=== PATIENT | male | born 1955 | race Caucasian/White ===

== ENCOUNTER 2017-01-04 07:30 | Inpatient (IN) | payer MEDICARE, MEDICAID ==
[2017-01-11] MEDS ORDERED: Lactated Ringers 1,000 ML IV SCH (06:15)
[2017-01-11] MEDS ORDERED: ceFAZolin 2 GM in Premix Bag 1 BAG IV ONE (06:15)
[2017-01-11] MEDS ORDERED: Thrombin (Bovine) 5,000 Unit Kit ONE ×3 (06:50→07:54)
[2017-01-11] MEDS ORDERED: ceFAZolin 2 GM in Sodium Chloride 0.9% 50 ML IV ONE (07:00)
[2017-01-11] MEDS ORDERED: Propofol 200 MG/20 ML SDV ONE ×4 (07:20→09:29)
[2017-01-11] MEDS ORDERED: fentaNYL 250 MCG/5 ML SDV ONE ×2 (07:20→10:46)
[2017-01-11] MEDS ORDERED: Neostigmine Methylsulfate 1 MG/ML 5 ML Syringe ONE (07:20)
[2017-01-11] MEDS ORDERED: Dexamethasone 4 MG/ML SDV ONE (07:20)
[2017-01-11] MEDS ORDERED: Ondansetron 4 MG/2 ML SDV ONE (07:20)
[2017-01-11] MEDS ORDERED: Rocuronium 50 MG/5 ML Vial ONE ×2 (07:20→08:01)
[2017-01-11] MEDS ORDERED: Succinylcholine/Normal Saline 200 MG/10 ML Syringe ONE (07:20)
[2017-01-11] MEDS ORDERED: Ketamine 500 MG/5 ML MDV IV SCH (07:30)
[2017-01-11] MEDS ORDERED: Povidone-Iodine 10% Soln 118.25 ML Bottle ONE (09:02)
[2017-01-11] MEDS ORDERED: Lactated Ringers 1,000 ML ONE ×2 (09:06)
[2017-01-11] MEDS ORDERED: Linezolid 200 MG/100 ML Bag IRR ONE (11:00)
[2017-01-11] MEDS ORDERED: HYDROmorphone/Normal Saline 15 MG/30 ML PCA IV PRN (12:02)
[2017-01-11] MEDS ORDERED: Naloxone 0.4 MG/ML SDV IVPUSH PRN (12:02)
[2017-01-11] MEDS ORDERED: Acetaminophen/oxyCODONE 325-5 MG Tab PO PRN (14:11)
[2017-01-11] MEDS ORDERED: Ondansetron 4 MG/2 ML SDV IVPUSH PRN (14:12)
[2017-01-11] MEDS ORDERED: Nitroglycerin 0.4 MG Tab.SL SL PRN (14:15)
[2017-01-11] MEDS: Dextrose 5%-Lactated Ringers 1,000 ML IV SCH ×2 (14:45→20:41)
[2017-01-11] MEDS: ceFAZolin 2 GM in Sodium Chloride 0.9% 50 ML IV SCH ×2 (15:24→22:38)
[2017-01-11] MEDS: ClonazePAM 1 MG Tab PO SCH ×3 (15:29→20:42)
[2017-01-11] MEDS: Lisinopril 20 MG Tab PO SCH (15:31)
[2017-01-11] MEDS: Divalproex Sodium 250 MG Tab.ER PO SCH ×2 (15:31→20:56)
--- NOTE | 2017-01-11 16:41 | OR ---
DATE OF PROCEDURE: 01/11/2017 PREOPERATIVE DIAGNOSES: 1. Lumbar stenosis, L5-S1. 2. Lumbar spondylolisthesis, L5-S1. 3. Lumbar radiculopathy, L5-S1. POSTOPERATIVE DIAGNOSES: 1. Lumbar stenosis, L5-S1. 2. Lumbar spondylolisthesis, L5-S1. 3. Lumbar radiculopathy, L5-S1. Procedure: 1. Anterior Lumbar Interbody Fusion L5-S1 2. Segmental instrumentation L5-S1 3. Allograft L5-S1 4. Insertion of interbody device L5-S1 Surgeon: Saw Mahan DO Co-Surgeon: Addi Mahan MD ANESTHESIA: General endotracheal intubation. FLUID: Lactated Ringer solution. ESTIMATED BLOOD LOSS: 50 mL. COMPLICATIONS: None. SPECIMENS: None. INDICATION FOR PROCEDURE: The patient was seen by myself in the clinic. He was referred by [facility] in [place]. He failed nonoperative treatment. Preoperative imaging confirmed the above-mentioned diagnosis. Risks and benefits of the procedure were explained to the patient. Informed consent was obtained. DETAILS OF PROCEDURE: The patient was seen preoperatively by myself and the anesthesia staff in the preop holding area where the operative site was marked. He was brought to the operative suite by the anesthesia staff where general anesthesia was administered. Sterile Magaña catheter was placed. In the fluoroscopy unit, he was draped in a sterile manner. Neuromonitoring leads were placed and normal at baseline and remained normal throughout the case with no changes. The patient was prepped and draped in a sterile manner. Time-out was called out identifying correct patient, correct procedure, the correct site, and antibiotics had begun within appropriate period of time. Exposure was done by Chris Mahan MD. Please see his notes regarding the exposure. After exposure was done, this was confirmed to be at the correct disk space and slightly on the left side which would be appropriate given his foraminal stenosis worse on this side. I demarcated the disk space using a Bovie electrocautery. I then used a 15 deep blade to incise through the anterior anulus. I then used a narrow, wide and angled Bianchi elevators to go along the vertebral bodies. I confirmed my depth with fluoroscopy. I then was able to move the great deal of the disk en block. I then used pituitaries as well as multiple curettes and took a great deal of time for the diskectomy and was able to get more disk out on the right side by undermining the anulus. After this had been completed, I sequentially trialed up to a 26 x 34 15-mm implant. I was able to get this posterior enough. We then used a Signify and then packed approximately half to one pack on the right side into disk space. We then inserted our final device which was a Globus 26 x 34, 14-18, 15- degree implant. I expanded this under fluoroscopy and it was torqued out. I also placed Signify inside the device prior to placement. After that was complete, I then placed two 30 mm screws and one 25-mm screw. The 25-mm screw was on the right at S1. I then took final films. Monitoring was normal at the end of the case. Please see Chris Mahan's note for closure. Saw Mahan DO /[id number] MTDD
[2017-01-11] MEDS ORDERED: Lactated Ringers 500 ML IV ONE ×2 (20:15→22:15)
[2017-01-11] MEDS: Oxybutynin 5 MG Tab PO SCH (20:42)
[2017-01-11] MEDS: Allopurinol 100 MG Tab PO SCH (20:42)
[2017-01-11] MEDS: CLOZARIL 100 MG PO SCH (20:43)
[2017-01-12] MEDS ORDERED: Lactated Ringers 500 ML IV SCH ×3 (00:15→03:15)
[2017-01-12] MEDS: ceFAZolin 2 GM in Sodium Chloride 0.9% 50 ML IV SCH (05:57)
[2017-01-12] MEDS: Pantoprazole 40 MG Tab.CR PO SCH (07:52)
[2017-01-12] MEDS: ARIPiprazole 10 MG Tab PO SCH (08:14)
[2017-01-12] MEDS: Oxybutynin 5 MG Tab PO SCH ×2 (08:15→20:46)
[2017-01-12] MEDS: Allopurinol 100 MG Tab PO SCH ×2 (08:15→20:45)
[2017-01-12] MEDS: FLUoxetine 20 MG Cap PO SCH (08:15)
[2017-01-12] MEDS: Aspirin 81 MG Tab.EC PO SCH ×2 (08:15→09:41)
[2017-01-12] MEDS: Divalproex Sodium 250 MG Tab.ER PO SCH ×3 (08:15→20:46)
[2017-01-12] MEDS: ClonazePAM 1 MG Tab PO SCH ×3 (08:19→20:46)
[2017-01-12] MEDS ORDERED: Enoxaparin 40 MG/0.4 ML Syringe SUBCUT SCH (09:00)
[2017-01-12] MEDS ORDERED: Coagulation Factor VIIa Recombinant (per MCG) 2 MG Vial IVPUSH ONE ×3 (09:15→14:15)
--- NOTE | 2017-01-12 10:23 | CT ---
Abdomen Pelvis wo Cont HISTORY: Recent anterior fusion lumbar spine. Dose: Total DLP 1982. COMPARISON: Prior MRI scan lumbar spine 06/23/2016 and plain films lumbar spine 12/02/2016. FINDINGS: Interval anterior fusion of L5 and S1 with intervertebral body disc prosthesis and threade d screws coursing into the adjacent L5 and S1 vertebral bodies. There is excellent alignment. There is a large left-sided rectus sheath hematoma. On axial image 146 this measures 8.8 cm transver se x 5.1 cm AP x 11.7 cm craniocaudal. There is additional hemorrhage posterior to the right rectus sheath hematoma measuring 6.4 cm with some additional blood in the deep pelvis and posterior left pe rirenal fascial plane. The psoas musculature appears normal. There is some moderate thickening of th e oblique musculature on the left compatible with some hematoma as well. There is no free intraperitoneal air. The liver, spleen, pancreas, adrenal glands and kidneys appear unremarkable. Patient has Magaña catheter. Impression: 1. Large left-sided rectus sheath hematoma as well additional hematoma in the left-sided oblique mus culature diffusely. Intraperitoneal hematoma posterior to the left rectus sheath with hemorrhage in the deep pelvis and left posterior perirenal fascial plane. These findings were called to the patient's nurse at 9:35 AM hours.
[2017-01-12] MEDS: CLOZARIL 100 MG PO SCH ×3 (10:34→20:44)
[2017-01-12] MEDS ORDERED: Doxycycline 100 MG in Sodium Chloride 0.9% 100 ML IV ONE (12:30)
[2017-01-12] MEDS ORDERED: Dexamethasone 4 MG/ML SDV ONE (12:53)
[2017-01-12] MEDS ORDERED: Neostigmine Methylsulfate 1 MG/ML 5 ML Syringe ONE (12:53)
[2017-01-12] MEDS ORDERED: Rocuronium 50 MG/5 ML Vial ONE (12:53)
[2017-01-12] MEDS ORDERED: Propofol 200 MG/20 ML SDV ONE (12:53)
[2017-01-12] MEDS ORDERED: fentaNYL 250 MCG/5 ML SDV ONE (12:53)
[2017-01-12] MEDS ORDERED: Ondansetron 4 MG/2 ML SDV ONE (12:53)
[2017-01-12] MEDS ORDERED: Succinylcholine/Normal Saline 200 MG/10 ML Syringe ONE (12:53)
[2017-01-12] MEDS ORDERED: Meropenem 500 MG SDV ONE (13:39)
[2017-01-12] MEDS ORDERED: Lactated Ringers 1,000 ML ONE (13:52)
[2017-01-12] MEDS ORDERED: Linezolid 200 MG/100 ML Bag IRR ONE (14:00)
[2017-01-12] MEDS ORDERED: HYDROmorphone/Normal Saline 15 MG/30 ML PCA IV PRN (15:15)
[2017-01-12] MEDS ORDERED: Naloxone 0.4 MG/ML SDV IV PRN (15:15)
[2017-01-12] MEDS ORDERED: Albuterol/Ipratropium 3.0-0.5 MG/3 ML Neb Soln INH PRN (15:29)
[2017-01-12] MEDS ORDERED: Furosemide 20 MG/2 ML VIAL IV ONE (15:30)
[2017-01-12] MEDS: Albuterol/Ipratropium 3.0-0.5 MG/3 ML Neb Soln INH SCH ×2 (15:49→20:47)
[2017-01-12] MEDS: Dextrose 5%-Lactated Ringers 1,000 ML IV SCH ×2 (16:00→22:13)
--- NOTE | 2017-01-12 16:50 | PCM.PN ---
- General Info Date of Service: 01/12/17 Functional Status: Reports: Pain Controlled - Review of Systems General: Reports: Weakness, Fatigue HEENT: Reports: No Symptoms Pulmonary: Reports: No Symptoms Cardiovascular: Reports: Lightheadedness Gastrointestinal: Reports: Abdominal Pain Genitourinary: Reports: Other Musculoskeletal: Reports: No Symptoms Skin: Reports: Other Neurological: Reports: No Symptoms Psychiatric: Reports: Other - Patient Data Vitals - most recent: Last Vital Signs Temp 97.9 F 01/12/17 16:37 Pulse 101 H 01/12/17 16:37 Resp 16 01/12/17 16:37 BP 128/80 01/12/17 16:37 Pulse Ox 92 L 01/12/17 16:39 Weight - most recent: 273 lb I&O - last 24 hours: Intake & Output 01/12/17 01/12/17 01/12/17 06:59 14:59 22:59 Intake Total 2705 2327 Output Total 135 256 950 Balance 2570 2071 -950 Lab Results last 24 hrs: Laboratory Results - last 24 hr 01/11/17 01/12/17 01/12/17 Range/Units 06:15 06:51 12:10 WBC 13.3 H 13.9 H (4.5-11.0) K/uL RBC 3.02 L 3.82 L (4.30-5.90) M/uL Hgb 9.5 L D 11.8 L D (12.0-15.0) g/dL Hct 28.8 L 35.2 L (40.0-54.0) % MCV 95 92 (80-98) fL MCH 32 H 31 (27-31) pg MCHC 33 34 (32-36) % Plt Count 181 135 L (150-400) K/uL Sodium (140-148) mmol/L Potassium (3.6-5.2) mmol/L Chloride (100-108) mmol/L Carbon Dioxide (21-32) mmol/L Anion Gap (5.0-14.0) mmol/L BUN (7-18) mg/dL Creatinine (0.8-1.3) mg/dL Est Cr Clr Drug Dosing mL/min Estimated GFR (MDRD) (>60) Glucose (74-106) mg/dL Calcium (8.5-10.1) mg/dL Blood Type O POSITIVE Gel Antibody Screen Negative Crossmatch See Detail 01/12/17 Range/Units 12:10 WBC (4.5-11.0) K/uL RBC (4.30-5.90) M/uL Hgb (12.0-15.0) g/dL Hct (40.0-54.0) % MCV (80-98) fL MCH (27-31) pg MCHC (32-36) % Plt Count (150-400) K/uL Sodium (140-148) mmol/L Potassium (3.6-5.2) mmol/L Chloride (100-108) mmol/L Carbon Dioxide (21-32) mmol/L Anion Gap (5.0-14.0) mmol/L BUN (7-18) mg/dL Creatinine (0.8-1.3) mg/dL Est Cr Clr Drug Dosing mL/min Estimated GFR (MDRD) (>60) Glucose (74-106) mg/dL Calcium (8.5-10.1) mg/dL Blood Type Gel Antibody Screen Crossmatch Med Orders - Current: Current Medications Albuterol/Ipratropium (Duoneb 3.0-0.5 Mg/3 Ml) 3 ml INH QIDRT [facility] Last Admin: 01/12/17 15:49 Dose: 3 ml Albuterol/Ipratropium (Duoneb 3.0-0.5 Mg/3 Ml) 3 ml INH ASDIRECTED PRN PRN Reason: Shortness of Breath Allopurinol (Zyloprim) 200 mg PO BID [facility] Last Admin: 01/12/17 08:15 Dose: 200 mg Aripiprazole (Abilify) 15 mg PO DAILY [facility] Last Admin: 01/12/17 08:14 Dose: 15 mg Clonazepam (Klonopin) 2 mg PO TID [facility] Last Admin: 01/12/17 15:57 Dose: 2 mg Divalproex Sodium (Depakote Er) 500 mg PO TID [facility] Last Admin: 01/12/17 16:02 Dose: 500 mg Fluoxetine HCl (Prozac) 40 mg PO DAILY [facility] Last Admin: 01/12/17 08:15 Dose: 40 mg Hydromorphone HCl (Dilaudid Processor Helper 15 Mg In Ns 30 Ml) 0 mg IV ASDIRECTED PRN; Protocol 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 Last Admin: 01/12/17 15:30 Dose: 15 mg Dextrose/Lactated Ringer's (Dextrose 5%-Lactated Ringers) 1,000 mls @ 150 mls/ hr IV ASDIRECTED [facility] Last Admin: 01/12/17 16:00 Dose: 150 mls/hr Lisinopril (Prinivil) 20 mg PO DAILY [facility] Last Admin: 01/11/17 15:31 Dose: 20 mg Naloxone HCl (Narcan) 0.1 mg IV ASDIRECTED PRN PRN Reason: decreased respiratory rate Nitroglycerin (Nitrostat) 0.4 mg SL ASDIRECTED PRN PRN Reason: Chest Pain Ondansetron HCl (Zofran) 4 mg IVPUSH Q4H PRN PRN Reason: Nausea Oxybutynin Chloride (Oxybutynin) 5 mg PO BID [facility] Last Admin: 01/12/17 08:15 Dose: 5 mg Pantoprazole Sodium (Protonix) 40 mg PO ACBREAKFAST [facility] Last Admin: 01/12/17 07:52 Dose: 40 mg Clozaril 100mg (Ptom ()) 0 each PO BEDTIME [facility] Last Admin: 01/11/17 20:43 Dose: Not Given Clozaril 100mg (Ptom ()) 0 each PO DAILY@0800 [facility] Last Admin: 01/12/17 10:34 Dose: Not Given Clozaril 100mg (Ptom ()) 0 each PO DAILY@1200 [facility] Last Admin: 01/12/17 13:06 Dose: Not Given Discontinued Medications Aspirin (Halfprin) 81 mg PO DAILY [facility] Last Admin: 01/12/17 09:41 Dose: Not Given Dexamethasone (Dexamethasone) Confirm Administered Dose 4 mg .ROUTE .STK-MED ONE Stop: 01/11/17 07:21 Dexamethasone (Dexamethasone) Confirm Administered Dose 4 mg .ROUTE .STK-MED ONE Stop: 01/12/17 12:54 Enoxaparin Sodium (Lovenox) 40 mg SUBCUT DAILY [facility] Last Admin: 01/12/17 09:41 Dose: Not Given Factor VIIa (Recombinant) (Novoseven Rt) 2,000 mcg IVPUSH ONETIME ONE Stop: 01/12/17 09:16 Last Admin: 01/12/17 09:19 Dose: 2,000 mcg Factor VIIa (Recombinant) (Novoseven Rt) 2,000 mcg IVPUSH ONETIME ONE Stop: 01/12/17 10:01 Last Admin: 01/12/17 10:32 Dose: 2,000 mcg Factor VIIa (Recombinant) (Novoseven Rt) 2,000 mcg IVPUSH ONETIME ONE Stop: 01/12/17 14:16 Last Admin: 01/12/17 14:20 Dose: 1 mcg Fentanyl (Sublimaze) Confirm Administered Dose 500 mcg .ROUTE .STK-MED ONE Stop: 01/11/17 07:21 Fentanyl (Sublimaze) Confirm Administered Dose 250 mcg .ROUTE .STK-MED ONE Stop: 01/11/17 10:47 Fentanyl (Sublimaze) Confirm Administered Dose 250 mcg .ROUTE .STK-MED ONE Stop: 01/12/17 12:54 Furosemide (Lasix) 10 mg IV ONETIME ONE Stop: 01/12/17 15:31 Last Admin: 01/12/17 15:51 Dose: 10 mg Glycopyrrolate () Confirm Administered Dose 1 mg .ROUTE .STK-MED ONE Stop: 01/11/17 07:21 Glycopyrrolate () Confirm Administered Dose 1 mg .ROUTE .STK-MED ONE Stop: 01/12/17 12:54 Hydromorphone HCl (Dilaudid Processor Helper 15 Mg In Ns 30 Ml) 0 mg IV ASDIRECTED PRN; Protocol PRN Reason: Pain Last Admin: 01/11/17 12:12 Dose: 0.3 mg Lactated Ringer's (Ringers, Lactated) 1,000 mls @ 0 mls/hr IV ASDIRECTED [facility] PRN Reason: KVO Last Admin: 01/11/17 06:19 Dose: 25 mls/hr Cefazolin Sodium 2 gm/ Sodium (Chloride) 50 mls @ 100 mls/hr IV ONETIME ONE Stop: 01/11/17 07:29 Last Admin: 01/11/17 07:25 Dose: 100 mls/hr Ketamine HCl 100 mg/ Sodium (Chloride) 100 mls @ 21 mls/hr IV ASDIRECTED MOHSEN Linezolid (Zyvox) Confirm Administered Dose 100 mls @ as directed .ROUTE .STK- MED ONE Stop: 01/11/17 06:51 Lactated Ringer's (Ringers, Lactated) Confirm Administered Dose 1,000 mls @ as directed .ROUTE .STK-MED ONE Stop: 01/11/17 09:07 Lactated Ringer's (Ringers, Lactated) Confirm Administered Dose 1,000 mls @ as directed .ROUTE .STK-MED ONE Stop: 01/11/17 09:07 Cefazolin Sodium 2 gm/ Sodium (Chloride) 50 mls @ 100 mls/hr IV Q8H MOHSEN Stop: 01/12/17 06:59 Last Admin: 01/12/17 05:57 Dose: 100 mls/hr Lactated Ringer's (Ringers, Lactated) 500 mls @ 500 mls/hr IV ONETIME ONE Stop: 01/11/17 21:14 Last Admin: 01/11/17 20:20 Dose: 500 mls/hr Lactated Ringer's (Ringers, Lactated) 500 mls @ 500 mls/hr IV ONETIME ONE Stop: 01/11/17 23:14 Last Admin: 01/11/17 22:36 Dose: 500 mls/hr Lactated Ringer's (Ringers, Lactated) 500 mls @ 500 mls/hr IV ASDIRECTED MOHSEN Lactated Ringer's (Ringers, Lactated) 500 mls @ 500 mls/hr IV ASDIRECTED MOHSEN Stop: 01/12/17 04:15 Last Admin: 01/12/17 03:15 Dose: 500 mls/hr Doxycycline Hyclate 100 mg/ (Sodium Chloride) 100 mls @ 100 mls/hr IV ONCALL ONE Stop: 01/12/17 13:29 Last Admin: 01/12/17 13:20 Dose: 100 mls/hr Linezolid (Zyvox) Confirm Administered Dose 100 mls @ as directed .ROUTE .STK- MED ONE Stop: 01/12/17 13:40 Lactated Ringer's (Ringers, Lactated) Confirm Administered Dose 1,000 mls @ as directed .ROUTE .STK-MED ONE Stop: 01/12/17 13:53 Ketamine HCl (Ketalar) 35 mg IV ASDIRECTED MOHSEN Linezolid (Zyvox) 200 mg IRR .STK-MED ONE Stop: 01/11/17 11:01 Last Admin: 01/11/17 11:00 Dose: 200 mg Linezolid (Zyvox) 200 mg IRR .STK-MED ONE Stop: 01/12/17 14:01 Last Admin: 01/12/17 14:00 Dose: 200 mg Meropenem (Merrem) Confirm Administered Dose 500 mg .ROUTE .STK-MED ONE Stop: 01/12/17 13:40 Last Admin: 01/12/17 15:07 Dose: 500 mg Naloxone HCl (Narcan) 0.1 mg IVPUSH Q5M PRN PRN Reason: Respiratory Distress Neostigmine Methylsulfate (Neostigmine) Confirm Administered Dose 5 mg .ROUTE .STK-MED ONE Stop: 01/11/17 07:21 Neostigmine Methylsulfate (Neostigmine) Confirm Administered Dose 5 mg .ROUTE .STK-MED ONE Stop: 01/12/17 12:54 Ondansetron HCl (Zofran) Confirm Administered Dose 4 mg .ROUTE .STK-MED ONE Stop: 01/11/17 07:21 Ondansetron HCl (Zofran) Confirm Administered Dose 4 mg .ROUTE .STK-MED ONE Stop: 01/12/17 12:54 Oxycodone/Acetaminophen (Percocet 325-5 Mg) 1 - 2 tab PO Q4H PRN PRN Reason: Pain Last Admin: 01/12/17 07:53 Dose: 1 tab Povidone Iodine (Betadine 10% Soln) Confirm Administered Dose 1 ml .ROUTE .STK- MED ONE Stop: 01/11/17 09:03 Propofol (Diprivan 20 Ml) Confirm Administered Dose 200 mg .ROUTE .STK-MED ONE Stop: 01/11/17 07:21 Propofol (Diprivan 20 Ml) Confirm Administered Dose 600 mg .ROUTE .STK-MED ONE Stop: 01/11/17 08:32 Propofol (Diprivan 20 Ml) Confirm Administered Dose 600 mg .ROUTE .STK-MED ONE Stop: 01/11/17 08:32 Propofol (Diprivan 20 Ml) Confirm Administered Dose 600 mg .ROUTE .STK-MED ONE Stop: 01/11/17 09:30 Propofol (Diprivan 20 Ml) Confirm Administered Dose 200 mg .ROUTE .STK-MED ONE Stop: 01/12/17 12:54 Rocuronium [place] (Zemuron) Confirm Administered Dose 50 mg .ROUTE .STK-MED ONE Stop: 01/11/17 07:21 Rocuronium [place] (Zemuron) Confirm Administered Dose 50 mg .ROUTE .STK-MED ONE Stop: 01/11/17 08:02 Rocuronium [place] (Zemuron) Confirm Administered Dose 50 mg .ROUTE .STK-MED ONE Stop: 01/12/17 12:54 Succinylcholine Chloride (Succinylcholine In Ns Pf) Confirm Administered Dose 200 mg .ROUTE .STK-MED ONE Stop: 01/11/17 07:21 Succinylcholine Chloride (Succinylcholine In Ns Pf) Confirm Administered Dose 200 mg .ROUTE .STK-MED ONE Stop: 01/12/17 12:54 Thrombin (Thrombin-Jmi) Confirm Administered Dose 25,000 unit .ROUTE .STK-MED ONE Stop: 01/11/17 06:51 Last Admin: 01/11/17 11:00 Dose: 10,000 unit Thrombin (Thrombin-Jmi) Confirm Administered Dose 5,000 unit .ROUTE .STK-MED ONE Stop: 01/11/17 06:52 Thrombin (Thrombin-Jmi) Confirm Administered Dose 5,000 unit .ROUTE .STK-MED ONE Stop: 01/11/17 07:55 - Exam General: alert, oriented HEENT: Pupils equal, Pupils reactive, EOMI, Mucous membr. moist/pink Neck: supple Back Exam: Normal Inspection Extremities: Normal Inspection Skin: ecchymosis Wound/Incisions: other Neurological: no new focal deficit Psy/Mental Status: alert, normal affect, normal mood Physical Findings Comments:: Patient was found to be weak and dizzy. Hg decreased to [address] revealed rectus sheath hematoma dissecting deep. Dr. Chris Mahan ordered 3 units PRBC and took him back for hematoma evacuation. He believed it was due to an epigastric artery. Drains were placed. Patient was stable with low BP and minimal Urine output prior to surgery. - Problem List & Annotations (1) Status post lumbar spinal fusion SNOMED Code(s): 84003133324616, 188236047, 189133561, 24717804710762 Code(s): Z98.1 - ARTHRODESIS STATUS Status: Acute Current Visit: Yes Annotation/Comment:: L5 - S1 (2) Spinal stenosis of lumbar region SNOMED Code(s): 26862770 Code(s): M48.06 - SPINAL STENOSIS, LUMBAR REGION Status: Chronic Current Visit: No (3) Spondylolisthesis, lumbar region SNOMED Code(s): 870319428922365 Code(s): M43.16 - SPONDYLOLISTHESIS, LUMBAR REGION Status: Chronic Current Visit: No - Problem List Review Problem List Initiated/Reviewed/Updated: Yes - Plan Plan:: Wait for PT/OT per Dr. Chris Mahan Pain [facility]
[2017-01-13] MEDS: Dextrose 5%-Lactated Ringers 1,000 ML IV SCH ×2 (04:10→11:28)
[2017-01-13] MEDS ORDERED: Central Total Parenteral Nutrition Bag SCH (07:15)
[2017-01-13] MEDS ORDERED: Magnesium Hydroxide 400 MG/5 ML Susp 30 ML Cup PO SCH (09:00)
[2017-01-13] MEDS: Albuterol/Ipratropium 3.0-0.5 MG/3 ML Neb Soln INH SCH ×4 (09:07→20:10)
[2017-01-13] MEDS: CLOZARIL 100 MG PO SCH ×3 (09:10→20:25)
[2017-01-13] MEDS: Pantoprazole 40 MG Tab.CR PO SCH (09:13)
[2017-01-13] MEDS: ARIPiprazole 10 MG Tab PO SCH (09:13)
[2017-01-13] MEDS: Divalproex Sodium 250 MG Tab.ER PO SCH ×3 (09:15→20:26)
[2017-01-13] MEDS: Oxybutynin 5 MG Tab PO SCH ×2 (09:16→20:26)
[2017-01-13] MEDS: FLUoxetine 20 MG Cap PO SCH (09:16)
[2017-01-13] MEDS: Allopurinol 100 MG Tab PO SCH ×2 (09:17→20:26)
[2017-01-13] MEDS: ClonazePAM 1 MG Tab PO SCH ×3 (09:26→20:27)
--- NOTE | 2017-01-13 09:28 | PN ---
DATE OF SERVICE: 01/12/2017 SUBJECTIVE: [place] is postoperative day #1, he received 3 units of blood yesterday for an intravascular bleed. He is doing well. He is sitting up in the chair. Vital signs have been stable. He remains n.p.o. Magaña catheter has put out 4756. His MARIE drain #1 and #2 put out 340, and MARIE drain #3 put out 0. He states his pain is controlled. REVIEW OF SYSTEMS: Remainder of review of systems negative for any pertinent positives or negatives. Hemoglobin this morning was 11.2. OBJECTIVE: GENERAL: Kashmir Sheridan is a 61-year-old male. He is sitting up in the chair. Alert and orientated. VITAL SIGNS: TPR 97.2, 100, 16, blood pressure 98/60. HEENT: Negative. NECK: Supple. HEART: Regular rate and rhythm. LUNGS: Clear. ABDOMEN: Dressings dry and intact. Abdominal binder is on. EXTREMITIES: Without peripheral edema. ASSESSMENT: 1. Exploratory laparotomy of left retroperitoneal area with evacuation of rectus retroperitoneal hematoma and ligation of inferior epigastric artery for bleeding of the left inferior artery with rectus hematoma extending into the retroperitoneum. Date of surgery 01/12/2017. 2. L5-S1 anterior lumbar interbody fusion for L5-S1 spondylolisthesis and foraminal stenosis. Date of surgery 01/11/2017. PLAN: 1. Hold lisinopril, ask in a.m. 2. Decrease IV to 80 mL/h. 3. Remain n.p.o. 4. Discontinue Magaña catheter. 5. MARIE drains maybe change to bulb suction when ambulating or to physical therapy and then return to wall suction when he is back in his room. Good pulmonary toilet encouraged. 6. We will check CBC and CMP in a.m. We will evaluate p.r.n. or in a.m. Promise Daly PA-C /[id number]
--- NOTE | 2017-01-13 10:34 | OR ---
DATE OF PROCEDURE: 01/11/2017 PREOPERATIVE DIAGNOSIS: L5-S1 spondylolisthesis and foraminal stenosis. POSTOPERATIVE DIAGNOSIS: L5-S1 spondylolisthesis and foraminal stenosis. PROCEDURE: Interbody fusion of L5-S1 ([id number]). ANESTHESIA: General. INDICATIONS FOR PROCEDURE: This is a 61-year-old male presenting with L5-S1 spondylolisthesis and foraminal stenosis. Plan is to proceed with ALIF procedure at that level. My role in this procedure is to provide exposure for Dr. Saw Mahan to perform the actual orthopedic procedure. Potential risks including bleeding, infection, injury to underlying viscera, problems with injury to the nerves in the area, as well as possible vascular complications including venous thrombosis and/or arterial occlusion, as well as remote possibility of massive bleeding and other complications potentially leading to were reviewed, and the patient wishes to proceed. DETAILS OF PROCEDURE: The patient was taken to the operating room. After general endotracheal anesthesia was induced, a roll was placed underneath the left knee to loosen the psoas muscle. Magaña catheter was inserted and the abdomen was prepped and draped. Left paramedian incision along the lower abdomen was made and carried down through the skin and subcutaneous tissue. Over the midportion of the rectus sheath, a vertical incision was made and dissection over the lateral aspect of the rectus muscle accomplished, this then allowed dissection into the retroperitoneal plane behind that. The peritoneum and its associated viscera were then bluntly with some aid of electrocautery dissected off the lateral retroperitoneal structures. Care was taken to mobilize the ureter, as well as the neural plexus overlying the area of the aortic bifurcation, along with the peritoneum as dissection proceeded. The patient had quite a bit of subcutaneous tissue, as well as retroperitoneal fat, which impeded dissection somewhat, but eventually, the vascular structures were identified and dissected free. The complex of the left iliac vein and artery were then retracted somewhat superiorly and toward the left, and similarly the right iliac artery and vein were retracted rightward. Needle was then placed in the interspace just below the sacral promontory, and x-rays confirmed this to be the L5-S1 interspace. The medial sacral vessels were then divided with cautery, and the soft tissues over the disk space were then dissected free exposing the disk space satisfactorily. At this point, Dr. Saw Mahan entered the case and undertook the interbody fusion procedure. Upon completion of that, the area was inspected. Prior to the orthopedic phase of the procedure, the wound was irrigated with Zyvox containing saline solution. Prior to the orthopedic procedure, it was confirmed that the patient had a good arterial pulsation in the left iliac artery, and this was once again confirmed upon removal of the retractors. The retractors were removed, and there appeared to be no vacular or other injuries present. The fascia over the anterior rectus sheath was then approximated with a #2 Vicryl stitch. The patient was fairly obese and so a 10-Indonesian round subcutaneous drain was placed through a stab wound along the inferior aspect of the incision and the incision was then closed with 2- 0 Vicryl in subcutaneous tissue, along with 4-0 Vicryl subdermal stitch, and then evangelina for the skin. The drain was affixed with some 3-0 Vicryl stitch. A dressing was applied. The patient's vascular status was then assessed prior to taking down the sterile field, both feet had adequate perfusion clinically and had palpable dorsalis pedis pulses. The patient was taken to the recovery room in satisfactory condition. Addi Mahan MD /[id number]
--- NOTE | 2017-01-13 11:22 | PN ---
DATE OF SERVICE: 01/12/2017 The patient has been alert and mobile overnight. His blood pressures tend to run on the low side and will hold the Lisinopril. With that, his urine output has also been somewhat low. His heart rate runs right around 100. He has received several boluses. We will check a hemoglobin this morning to make sure he has not had any significant postoperative bleeding. Otherwise, we will hold the lisinopril and switch over to oral pain medicine today and maximize activity and work with pulmonary toilet. Physical Therapy will be seeing the patient today. Depending on clinical course, he may be ready for discharge home tomorrow. Addi Mahan MD /[id number]
--- NOTE | 2017-01-13 14:41 | PCM.PN ---
- General Info Date of Service: 01/13/17 Functional Status: Reports: Pain Controlled, Ambulating - Patient Data Vitals - most recent: Last Vital Signs Temp 35.5 C 01/13/17 12:55 Pulse 98 01/13/17 12:55 Resp 16 01/13/17 12:55 BP 117/76 01/13/17 12:55 Pulse Ox 98 01/13/17 12:55 Weight - most recent: 273 lb I&O - last 24 hours: Intake & Output 01/12/17 01/13/17 01/13/17 22:59 06:59 14:59 Intake Total 214 1760 992 Output Total 3260 1580 630 Balance -3046 180 362 Lab Results last 24 hrs: Laboratory Results - last 24 hr 01/12/17 01/13/17 01/13/17 Range/Units 18:15 04:33 04:33 WBC 12.8 H 11.2 H (4.5-11.0) K/uL RBC 4.03 L 3.58 L (4.30-5.90) M/uL Hgb 12.3 11.2 L (12.0-15.0) g/dL Hct 36.6 L 33.0 L (40.0-54.0) % MCV 91 92 (80-98) fL MCH 31 31 (27-31) pg MCHC 34 34 (32-36) % Plt Count 151 137 L (150-400) K/uL Neut % (Auto) 70 H (36-66) % Lymph % (Auto) 14 L (24-44) % [place] % (Auto) 16 H (2-6) % Eos % (Auto) 0 L (2-4) % Baso % (Auto) 0 (0-1) % Sodium 135 L (140-148) mmol/L Potassium 4.9 (3.6-5.2) mmol/L Chloride 100 (100-108) mmol/L Carbon Dioxide 30 (21-32) mmol/L Anion Gap 9.9 (5.0-14.0) mmol/L BUN 18 (7-18) mg/dL Creatinine 1.0 (0.8-1.3) mg/dL Est Cr Clr Drug Dosing 81.11 mL/min Estimated GFR (MDRD) > 60 (>60) Glucose 149 H (74-106) mg/dL Calcium 8.2 L (8.5-10.1) mg/dL Phosphorus 3.6 (2.5-4.9) mg/dL Magnesium 1.9 (1.8-2.4) mg/dL Kvm-[id number]-Wypooxwolsf Pept 124 (5-125) pg/mL Med Orders - Current: Current Medications Albuterol/Ipratropium (Duoneb 3.0-0.5 Mg/3 Ml) 3 ml INH QIDRT [facility] Last Admin: 01/13/17 11:05 Dose: 3 ml Albuterol/Ipratropium (Duoneb 3.0-0.5 Mg/3 Ml) 3 ml INH ASDIRECTED PRN PRN Reason: Shortness of Breath Allopurinol (Zyloprim) 200 mg PO BID [facility] Last Admin: 01/13/17 09:17 Dose: 200 mg Aripiprazole (Abilify) 15 mg PO DAILY [facility] Last Admin: 01/13/17 09:13 Dose: 15 mg Clonazepam (Klonopin) 2 mg PO TID [facility] Last Admin: 01/13/17 09:26 Dose: 2 mg Divalproex Sodium (Depakote Er) 500 mg PO TID [facility] Last Admin: 01/13/17 09:15 Dose: 500 mg Fluoxetine HCl (Prozac) 40 mg PO DAILY [facility] Last Admin: 01/13/17 09:16 Dose: 40 mg Hydromorphone HCl (Dilaudid Mun[employer] Handler Supervisor 15 Mg In Ns 30 Ml) 0 mg IV ASDIRECTED PRN; Protocol PRN Reason: SKIN GRADER PAIN CONTROL Last Admin: 01/12/17 15:30 Dose: 15 mg Dextrose/Lactated Ringer's (Dextrose 5%-Lactated Ringers) 1,000 mls @ 80 mls/ hr IV ASDIRECTED [facility] Last Admin: 01/13/17 11:28 Dose: 80 mls/hr Lisinopril (Prinivil) 20 mg PO DAILY [facility] Last Admin: 01/11/17 15:31 Dose: 20 mg Naloxone HCl (Narcan) 0.1 mg IV ASDIRECTED PRN PRN Reason: decreased respiratory rate Nitroglycerin (Nitrostat) 0.4 mg SL ASDIRECTED PRN PRN Reason: Chest Pain Ondansetron HCl (Zofran) 4 mg IVPUSH Q4H PRN PRN Reason: Nausea Oxybutynin Chloride (Oxybutynin) 5 mg PO BID [facility] Last Admin: 01/13/17 09:16 Dose: 5 mg Pantoprazole Sodium (Protonix) 40 mg PO ACBREAKFAST [facility] Last Admin: 01/13/17 09:13 Dose: 40 mg Clozaril 100mg (Ptom ()) 0 each PO BEDTIME [facility] Last Admin: 01/12/17 20:44 Dose: 5 each Clozaril 100mg (Ptom ()) 0 each PO DAILY@0800 [facility] Last Admin: 01/13/17 09:10 Dose: 1 each Clozaril 100mg (Ptom ()) 0 each PO DAILY@1200 [facility] Last Admin: 01/13/17 12:51 Dose: 1 each Discontinued Medications Aspirin (Halfprin) 81 mg PO DAILY [facility] Last Admin: 01/12/17 09:41 Dose: Not Given Dexamethasone (Dexamethasone) Confirm Administered Dose 4 mg .ROUTE .STK-MED ONE Stop: 01/11/17 07:21 Dexamethasone (Dexamethasone) Confirm Administered Dose 4 mg .ROUTE .STK-MED ONE Stop: 01/12/17 12:54 Enoxaparin Sodium (Lovenox) 40 mg SUBCUT DAILY [facility] Last Admin: 01/12/17 09:41 Dose: Not Given Factor VIIa (Recombinant) (Novoseven Rt) 2,000 mcg IVPUSH ONETIME ONE Stop: 01/12/17 09:16 Last Admin: 01/12/17 09:19 Dose: 2,000 mcg Factor VIIa (Recombinant) (Novoseven Rt) 2,000 mcg IVPUSH ONETIME ONE Stop: 01/12/17 10:01 Last Admin: 01/12/17 10:32 Dose: 2,000 mcg Factor VIIa (Recombinant) (Novoseven Rt) 2,000 mcg IVPUSH ONETIME ONE Stop: 01/12/17 14:16 Last Admin: 01/12/17 14:20 Dose: 1 mcg Fentanyl (Sublimaze) Confirm Administered Dose 500 mcg .ROUTE .STK-MED ONE Stop: 01/11/17 07:21 Fentanyl (Sublimaze) Confirm Administered Dose 250 mcg .ROUTE .STK-MED ONE Stop: 01/11/17 10:47 Fentanyl (Sublimaze) Confirm Administered Dose 250 mcg .ROUTE .STK-MED ONE Stop: 01/12/17 12:54 Furosemide (Lasix) 10 mg IV ONETIME ONE Stop: 01/12/17 15:31 Last Admin: 01/12/17 15:51 Dose: 10 mg Glycopyrrolate () Confirm Administered Dose 1 mg .ROUTE .[facility] ONE Stop: 01/11/17 07:21 Glycopyrrolate () Confirm Administered Dose 1 mg .ROUTE .[facility] ONE Stop: 01/12/17 12:54 Hydromorphone HCl (Dilaudid [employer] Handler Supervisor 15 Mg In Ns 30 Ml) 0 mg IV ASDIRECTED PRN; Protocol PRN Reason: Pain Last Admin: 01/11/17 12:12 Dose: 0.3 mg Lactated Ringer's (Ringers, Lactated) 1,000 mls @ 0 mls/hr IV ASDIRECTED [facility] PRN Reason: KVO Last Admin: 01/11/17 06:19 Dose: 25 mls/hr Cefazolin Sodium 2 gm/ Sodium (Chloride) 50 mls @ 100 mls/hr IV ONETIME ONE Stop: 01/11/17 07:29 Last Admin: 01/11/17 07:25 Dose: 100 mls/hr Ketamine HCl 100 mg/ Sodium (Chloride) 100 mls @ 21 mls/hr IV ASDIRECTED [facility] Linezolid (Zyvox) Confirm Administered Dose 100 mls @ as directed .ROUTE .[facility]- MED ONE Stop: 01/11/17 06:51 Lactated Ringer's (Ringers, Lactated) Confirm Administered Dose 1,000 mls @ as directed .ROUTE .[facility] ONE Stop: 01/11/17 09:07 Lactated Ringer's (Ringers, Lactated) Confirm Administered Dose 1,000 mls @ as directed .ROUTE .[facility] ONE Stop: 01/11/17 09:07 Dextrose/Lactated Ringer's (Dextrose 5%-Lactated Ringers) 1,000 mls @ 150 mls/ hr IV ASDIRECTED [facility] Last Admin: 01/13/17 04:10 Dose: 150 mls/hr Cefazolin Sodium 2 gm/ Sodium (Chloride) 50 mls @ 100 mls/hr IV Q8H [facility] Stop: 01/12/17 06:59 Last Admin: 01/12/17 05:57 Dose: 100 mls/hr Lactated Ringer's (Ringers, Lactated) 500 mls @ 500 mls/hr IV ONETIME ONE Stop: 01/11/17 21:14 Last Admin: 01/11/17 20:20 Dose: 500 mls/hr Lactated Ringer's (Ringers, Lactated) 500 mls @ 500 mls/hr IV ONETIME ONE Stop: 01/11/17 23:14 Last Admin: 01/11/17 22:36 Dose: 500 mls/hr Lactated Ringer's (Ringers, Lactated) 500 mls @ 500 mls/hr IV ASDIRECTED [facility] Lactated Ringer's (Ringers, Lactated) 500 mls @ 500 mls/hr IV ASDIRECTED [facility] Stop: 01/12/17 04:15 Last Admin: 01/12/17 03:15 Dose: 500 mls/hr Doxycycline Hyclate 100 mg/ (Sodium Chloride) 100 mls @ 100 mls/hr IV ONCALL ONE Stop: 01/12/17 13:29 Last Admin: 01/12/17 13:20 Dose: 100 mls/hr Linezolid (Zyvox) Confirm Administered Dose 100 mls @ as directed .ROUTE .STK- MED ONE Stop: 01/12/17 13:40 Lactated Ringer's (Ringers, Lactated) Confirm Administered Dose 1,000 mls @ as directed .ROUTE .STK-MED ONE Stop: 01/12/17 13:53 Ketamine HCl (Ketalar) 35 mg IV ASDIRECTED [facility] Linezolid (Zyvox) 200 mg IRR .STK-MED ONE Stop: 01/11/17 11:01 Last Admin: 01/11/17 11:00 Dose: 200 mg Linezolid (Zyvox) 200 mg IRR .STK-MED ONE Stop: 01/12/17 14:01 Last Admin: 01/12/17 14:00 Dose: 200 mg Magnesium Hydroxide (Milk Of Magnesia) 30 ml PO BID [facility] Meropenem (Merrem) Confirm Administered Dose 500 mg .ROUTE .STK-MED ONE Stop: 01/12/17 13:40 Last Admin: 01/12/17 15:07 Dose: 500 mg Naloxone HCl (Narcan) 0.1 mg IVPUSH Q5M PRN PRN Reason: Respiratory Distress Neostigmine Methylsulfate (Neostigmine) Confirm Administered Dose 5 mg .ROUTE .STK-MED ONE Stop: 01/11/17 07:21 Neostigmine Methylsulfate (Neostigmine) Confirm Administered Dose 5 mg .ROUTE .STK-MED ONE Stop: 01/12/17 12:54 Non-Formulary Medication (Total Parenteral Nutrition, Central) 1,000 ml .XX .Continue Order [facility] Ondansetron HCl (Zofran) Confirm Administered Dose 4 mg .ROUTE .STK-MED ONE Stop: 01/11/17 07:21 Ondansetron HCl (Zofran) Confirm Administered Dose 4 mg .ROUTE .STK-MED ONE Stop: 01/12/17 12:54 Oxycodone/Acetaminophen (Percocet 325-5 Mg) 1 - 2 tab PO Q4H PRN PRN Reason: Pain Last Admin: 01/12/17 07:53 Dose: 1 tab Povidone Iodine (Betadine 10% Soln) Confirm Administered Dose 1 ml .ROUTE .STK- MED ONE Stop: 01/11/17 09:03 Propofol (Diprivan 20 Ml) Confirm Administered Dose 200 mg .ROUTE .STK-MED ONE Stop: 01/11/17 07:21 Propofol (Diprivan 20 Ml) Confirm Administered Dose 600 mg .ROUTE .STK-MED ONE Stop: 01/11/17 08:32 Propofol (Diprivan 20 Ml) Confirm Administered Dose 600 mg .ROUTE .STK-MED ONE Stop: 01/11/17 08:32 Propofol (Diprivan 20 Ml) Confirm Administered Dose 600 mg .ROUTE .STK-MED ONE Stop: 01/11/17 09:30 Propofol (Diprivan 20 Ml) Confirm Administered Dose 200 mg .ROUTE .STK-MED ONE Stop: 01/12/17 12:54 Rocuronium [place] (Zemuron) Confirm Administered Dose 50 mg .ROUTE .STK-MED ONE Stop: 01/11/17 07:21 Rocuronium [place] (Zemuron) Confirm Administered Dose 50 mg .ROUTE .STK-MED ONE Stop: 01/11/17 08:02 Rocuronium [place] (Zemuron) Confirm Administered Dose 50 mg .ROUTE .STK-MED ONE Stop: 01/12/17 12:54 Succinylcholine Chloride (Succinylcholine In Ns Pf) Confirm Administered Dose 200 mg .ROUTE .STK-MED ONE Stop: 01/11/17 07:21 Succinylcholine Chloride (Succinylcholine In Ns Pf) Confirm Administered Dose 200 mg .ROUTE .STK-MED ONE Stop: 01/12/17 12:54 Thrombin (Thrombin-Jmi) Confirm Administered Dose 25,000 unit .ROUTE .STK-MED ONE Stop: 01/11/17 06:51 Last Admin: 01/11/17 11:00 Dose: 10,000 unit Thrombin (Thrombin-Jmi) Confirm Administered Dose 5,000 unit .ROUTE .STK-MED ONE Stop: 01/11/17 06:52 Thrombin (Thrombin-Jmi) Confirm Administered Dose 5,000 unit .ROUTE .STK-MED ONE Stop: 01/11/17 07:55 - Exam General: alert, oriented - Problem List Review Problem List Initiated/Reviewed/Updated: Yes - Plan Plan:: Kashmir is a pleasant 7-year-old male who is status post postop day 1 of an anterior fusion of L5-S1. He is doing very well. He states that his pain is getting better under control at this time. He states that he is not passing gas yet. Patient also notes that he's been ambulating. He notes no issues at this time. Assessment: Patient's dressing is clean dry and intact. MARIE drains are present. Plan: At this time we'll continue to monitor the patient. Dr. Chris Mahan is managing most of his orders. Patient has continued to request PT OT on strengthening. We want him to wear his brace as much as possible. He does note that is aggravating him a little bit due to his obtunded abdomen but is improving. We'll continue to watch his output. Pain is controlled and will continue to monitor for that.
[2017-01-14] MEDS: Dextrose 5%-Lactated Ringers 1,000 ML IV SCH ×2 (02:55→12:17)
[2017-01-14] MEDS: Albuterol/Ipratropium 3.0-0.5 MG/3 ML Neb Soln INH SCH ×4 (07:21→20:52)
[2017-01-14] MEDS: Pantoprazole 40 MG Tab.CR PO SCH (07:40)
[2017-01-14] MEDS: CLOZARIL 100 MG PO SCH ×3 (07:40→20:48)
[2017-01-14] MEDS: Acetaminophen 325 MG Tab PO SCH ×3 (07:41→20:46)
[2017-01-14] MEDS: Oxybutynin 5 MG Tab PO SCH ×2 (09:08→20:48)
[2017-01-14] MEDS: Divalproex Sodium 250 MG Tab.ER PO SCH ×3 (09:08→20:47)
[2017-01-14] MEDS: ClonazePAM 1 MG Tab PO SCH ×3 (09:08→20:51)
[2017-01-14] MEDS: FLUoxetine 20 MG Cap PO SCH (09:08)
[2017-01-14] MEDS: Bisacodyl 5 MG Tab PO SCH ×2 (09:09→20:47)
[2017-01-14] MEDS: Docusate Sodium 100 MG Cap PO SCH ×2 (09:09→20:47)
[2017-01-14] MEDS: ARIPiprazole 10 MG Tab PO SCH (09:09)
[2017-01-14] MEDS: Allopurinol 100 MG Tab PO SCH ×2 (09:10→21:56)
[2017-01-14] MEDS: Lisinopril 20 MG Tab PO SCH (09:10)
--- NOTE | 2017-01-14 10:00 | PN ---
DATE OF SERVICE: 01/14/2017 SUBJECTIVE: His pain has been controlled. He has had 850 oral intake ice chips. He has not had a bowel movement. He has been up ambulating as tolerated. He is requesting to eat more. He has no other associated signs and symptoms. OBJECTIVE: GENERAL: Kashmir is a 61-year-old male. He is alert and orientated and resting comfortably in bed. VITAL SIGNS: TPR 96.8, 95, 18, blood pressure 117/70. HEENT: Negative. NECK: Supple. HEART: Regular rate and rhythm. LUNGS: Clear. ABDOMEN: Dressings are dry and intact. Abdominal binder is on. EXTREMITIES: Without peripheral edema. ASSESSMENT: 1. Exploratory laparotomy of left retroperitoneal area with evacuation of rectus retroperitoneal hematoma and ligation of inferior epigastric artery for bleeding of the left inferior artery with rectus hematoma extending into the retroperitoneum, date of surgery 01/12/2017. 2. L5-S1 anterior lumbar interbody fusion of L5-S1 spondylolisthesis and foraminal stenosis, date of surgery 01/11/2017. PLAN: 1. Full liquid diet. 2. Advance diet to regular diet as tolerated. 3. Check CBC, CMP, mag, and phos in a.m. 4. Colace 100 mg b.i.d. 5. Dulcolax 2 tabs p.o. b.i.d. until bowel movement. 6. Tylenol 650 mg q.6 hours scheduled p.o. 7. Discontinue SUPERVISOR ROSE GRADING. 8. Discontinue continuous pulse ox. 9. Dilaudid 2 mg 1 to 2 every 4 hours p.r.n. pain. 10.Discharge planning is working on [facility] planner as of this dictation. Good pulmonary toilet encouraged. We will evaluate p.r.n. or in a.m. Promise Daly PA-C /[id number]
--- NOTE | 2017-01-14 13:51 | PCM.PN ---
- General Info Date of Service: 01/14/17 Functional Status: Reports: Pain Controlled, Ambulating, Urinating - Review of Systems Gastrointestinal: Reports: Abdominal Pain, Constipation Musculoskeletal: Reports: No Symptoms - Patient Data Vitals - most recent: Last Vital Signs Temp 36.6 C 01/14/17 11:16 Pulse 93 01/14/17 11:16 Resp 19 01/14/17 11:16 BP 120/72 01/14/17 11:16 Pulse Ox 91 L 01/14/17 13:16 Weight - most recent: 273 lb I&O - last 24 hours: Intake & Output 01/13/17 01/14/17 01/14/17 22:59 06:59 14:59 Intake Total 485 913 240 Output Total 550 780 300 Balance -65 133 -60 Lab Results last 24 hrs: Laboratory Results - last 24 hr 01/14/17 01/14/17 Range/Units 04:00 04:00 WBC 9.5 (4.5-11.0) K/uL RBC 3.34 L (4.30-5.90) M/uL Hgb 10.5 L (12.0-15.0) g/dL Hct 31.8 L (40.0-54.0) % MCV 95 (80-98) fL MCH 31 (27-31) pg MCHC 33 (32-36) % Plt Count 137 L (150-400) K/uL Sodium 137 L (140-148) mmol/L Potassium 4.4 (3.6-5.2) mmol/L Chloride 101 (100-108) mmol/L Carbon Dioxide 32 (21-32) mmol/L Anion Gap 8.4 (5.0-14.0) mmol/L BUN 13 (7-18) mg/dL Creatinine 0.8 (0.8-1.3) mg/dL Est Cr Clr Drug Dosing 101.39 mL/min Estimated GFR (MDRD) > 60 (>60) Glucose 119 H (74-106) mg/dL Calcium 8.4 L (8.5-10.1) mg/dL Total Bilirubin 0.4 (0.2-1.0) mg/dL AST 15 (15-37) U/L ALT 11 L (12-78) U/L Alkaline Phosphatase 39 L (46-116) U/L Total Protein 5.4 L (6.4-8.2) g/dL Albumin 2.3 L (3.4-5.0) g/dL Globulin 3.1 (2.3-3.5) g/dL Albumin/Globulin Ratio 0.7 L (1.2-2.2) Med Orders - Current: Current Medications Acetaminophen (Tylenol) 650 mg PO Q6H [facility] Last Admin: 01/14/17 07:41 Dose: 650 mg Albuterol/Ipratropium (Duoneb 3.0-0.5 Mg/3 Ml) 3 ml INH QIDRT [facility] Last Admin: 01/14/17 11:00 Dose: 3 ml Albuterol/Ipratropium (Duoneb 3.0-0.5 Mg/3 Ml) 3 ml INH ASDIRECTED PRN PRN Reason: Shortness of Breath Allopurinol (Zyloprim) 200 mg PO BID [facility] Last Admin: 01/14/17 09:10 Dose: 200 mg Aripiprazole (Abilify) 15 mg PO DAILY [facility] Last Admin: 01/14/17 09:09 Dose: 15 mg Bisacodyl (Dulcolax) 20 mg PO BID [facility] Last Admin: 01/14/17 09:09 Dose: 20 mg Clonazepam (Klonopin) 2 mg PO TID [facility] Last Admin: 01/14/17 09:08 Dose: 2 mg Divalproex Sodium (Depakote Er) 500 mg PO TID [facility] Last Admin: 01/14/17 09:08 Dose: 500 mg Docusate Sodium (Colace) 100 mg PO BID [facility] Last Admin: 01/14/17 09:09 Dose: 100 mg Fluoxetine HCl (Prozac) 40 mg PO DAILY [facility] Last Admin: 01/14/17 09:08 Dose: 40 mg Hydromorphone HCl (Dilaudid) 2 - 4 mg PO Q4H PRN PRN Reason: Pain Dextrose/Lactated Ringer's (Dextrose 5%-Lactated Ringers) 1,000 mls @ 80 mls/ hr IV ASDIRECTED [facility] Last Admin: 01/14/17 12:17 Dose: 80 mls/hr Lisinopril (Prinivil) 20 mg PO DAILY [facility] Last Admin: 01/14/17 09:10 Dose: 20 mg Nitroglycerin (Nitrostat) 0.4 mg SL ASDIRECTED PRN PRN Reason: Chest Pain Ondansetron HCl (Zofran) 4 mg IVPUSH Q4H PRN PRN Reason: Nausea Oxybutynin Chloride (Oxybutynin) 5 mg PO BID [facility] Last Admin: 01/14/17 09:08 Dose: 5 mg Pantoprazole Sodium (Protonix) 40 mg PO ACBREAKFAST [facility] Last Admin: 01/14/17 07:40 Dose: 40 mg Clozaril 100mg (Ptom ()) 0 each PO BEDTIME [facility] Last Admin: 01/13/17 20:25 Dose: 5 each Clozaril 100mg (Ptom ()) 0 each PO DAILY@0800 [facility] Last Admin: 01/14/17 07:40 Dose: 1 each Clozaril 100mg (Ptom ()) 0 each PO DAILY@1200 [facility] Last Admin: 01/14/17 12:16 Dose: 1 each Discontinued Medications Aspirin (Halfprin) 81 mg PO DAILY [facility] Last Admin: 01/12/17 09:41 Dose: Not Given Dexamethasone (Dexamethasone) Confirm Administered Dose 4 mg .ROUTE .STK-MED ONE Stop: 01/11/17 07:21 Dexamethasone (Dexamethasone) Confirm Administered Dose 4 mg .ROUTE .STK-MED ONE Stop: 01/12/17 12:54 Enoxaparin Sodium (Lovenox) 40 mg SUBCUT DAILY [facility] Last Admin: 01/12/17 09:41 Dose: Not Given Factor VIIa (Recombinant) (Novoseven Rt) 2,000 mcg IVPUSH ONETIME ONE Stop: 01/12/17 09:16 Last Admin: 01/12/17 09:19 Dose: 2,000 mcg Factor VIIa (Recombinant) (Novoseven Rt) 2,000 mcg IVPUSH ONETIME ONE Stop: 01/12/17 10:01 Last Admin: 01/12/17 10:32 Dose: 2,000 mcg Factor VIIa (Recombinant) (Novoseven Rt) 2,000 mcg IVPUSH ONETIME ONE Stop: 01/12/17 14:16 Last Admin: 01/12/17 14:20 Dose: 1 mcg Fentanyl (Sublimaze) Confirm Administered Dose 500 mcg .ROUTE .STK-MED ONE Stop: 01/11/17 07:21 Fentanyl (Sublimaze) Confirm Administered Dose 250 mcg .ROUTE .STK-MED ONE Stop: 01/11/17 10:47 Fentanyl (Sublimaze) Confirm Administered Dose 250 mcg .ROUTE .STK-MED ONE Stop: 01/12/17 12:54 Furosemide (Lasix) 10 mg IV ONETIME ONE Stop: 01/12/17 15:31 Last Admin: 01/12/17 15:51 Dose: 10 mg Glycopyrrolate () Confirm Administered Dose 1 mg .ROUTE .STK-MED ONE Stop: 01/11/17 07:21 Glycopyrrolate () Confirm Administered Dose 1 mg .ROUTE .STK-MED ONE Stop: 01/12/17 12:54 Hydromorphone HCl (Dilaudid Tabber 15 Mg In Ns 30 Ml) 0 mg IV ASDIRECTED PRN; Protocol PRN Reason: Pain Last Admin: 01/11/17 12:12 Dose: 0.3 mg Hydromorphone HCl (Dilaudid Tabber 15 Mg In Ns 30 Ml) 0 mg IV ASDIRECTED PRN; Protocol PRN Reason: LINEN SUPERVISOR PAIN CONTROL Last Admin: 01/12/17 15:30 Dose: 15 mg Lactated Ringer's (Ringers, Lactated) 1,000 mls @ 0 mls/hr IV ASDIRECTED [facility] PRN Reason: KVO Last Admin: 01/11/17 06:19 Dose: 25 mls/hr Cefazolin Sodium 2 gm/ Sodium (Chloride) 50 mls @ 100 mls/hr IV ONETIME ONE Stop: 01/11/17 07:29 Last Admin: 01/11/17 07:25 Dose: 100 mls/hr Ketamine HCl 100 mg/ Sodium (Chloride) 100 mls @ 21 mls/hr IV ASDIRECTED [facility] Linezolid (Zyvox) Confirm Administered Dose 100 mls @ as directed .ROUTE .STK- MED ONE Stop: 01/11/17 06:51 Lactated Ringer's (Ringers, Lactated) Confirm Administered Dose 1,000 mls @ as directed .ROUTE .STK-MED ONE Stop: 01/11/17 09:07 Lactated Ringer's (Ringers, Lactated) Confirm Administered Dose 1,000 mls @ as directed .ROUTE .STK-MED ONE Stop: 01/11/17 09:07 Dextrose/Lactated Ringer's (Dextrose 5%-Lactated Ringers) 1,000 mls @ 150 mls/ hr IV ASDIRECTED [facility] Last Admin: 01/13/17 04:10 Dose: 150 mls/hr Cefazolin Sodium 2 gm/ Sodium (Chloride) 50 mls @ 100 mls/hr IV Q8H [facility] Stop: 01/12/17 06:59 Last Admin: 01/12/17 05:57 Dose: 100 mls/hr Lactated Ringer's (Ringers, Lactated) 500 mls @ 500 mls/hr IV ONETIME ONE Stop: 01/11/17 21:14 Last Admin: 01/11/17 20:20 Dose: 500 mls/hr Lactated Ringer's (Ringers, Lactated) 500 mls @ 500 mls/hr IV ONETIME ONE Stop: 01/11/17 23:14 Last Admin: 01/11/17 22:36 Dose: 500 mls/hr Lactated Ringer's (Ringers, Lactated) 500 mls @ 500 mls/hr IV ASDIRECTED [facility] Lactated Ringer's (Ringers, Lactated) 500 mls @ 500 mls/hr IV ASDIRECTED [facility] Stop: 01/12/17 04:15 Last Admin: 01/12/17 03:15 Dose: 500 mls/hr Doxycycline Hyclate 100 mg/ (Sodium Chloride) 100 mls @ 100 mls/hr IV ONCALL ONE Stop: 01/12/17 13:29 Last Admin: 01/12/17 13:20 Dose: 100 mls/hr Linezolid (Zyvox) Confirm Administered Dose 100 mls @ as directed .ROUTE .STK- MED ONE Stop: 01/12/17 13:40 Lactated Ringer's (Ringers, Lactated) Confirm Administered Dose 1,000 mls @ as directed .ROUTE .STK-MED ONE Stop: 01/12/17 13:53 Ketamine HCl (Ketalar) 35 mg IV ASDIRECTED [facility] Linezolid (Zyvox) 200 mg IRR .STK-MED ONE Stop: 01/11/17 11:01 Last Admin: 01/11/17 11:00 Dose: 200 mg Linezolid (Zyvox) 200 mg IRR .STK-MED ONE Stop: 01/12/17 14:01 Last Admin: 01/12/17 14:00 Dose: 200 mg Magnesium Hydroxide (Milk Of Magnesia) 30 ml PO BID [facility] Meropenem (Merrem) Confirm Administered Dose 500 mg .ROUTE .STK-MED ONE Stop: 01/12/17 13:40 Last Admin: 01/12/17 15:07 Dose: 500 mg Naloxone HCl (Narcan) 0.1 mg IVPUSH Q5M PRN PRN Reason: Respiratory Distress Naloxone HCl (Narcan) 0.1 mg IV ASDIRECTED PRN PRN Reason: decreased respiratory rate Neostigmine Methylsulfate (Neostigmine) Confirm Administered Dose 5 mg .ROUTE .STK-MED ONE Stop: 01/11/17 07:21 Neostigmine Methylsulfate (Neostigmine) Confirm Administered Dose 5 mg .ROUTE .STK-MED ONE Stop: 01/12/17 12:54 Non-Formulary Medication (Total Parenteral Nutrition, Central) 1,000 ml .XX .Continue Order [facility] Ondansetron HCl (Zofran) Confirm Administered Dose 4 mg .ROUTE .STK-MED ONE Stop: 01/11/17 07:21 Ondansetron HCl (Zofran) Confirm Administered Dose 4 mg .ROUTE .STK-MED ONE Stop: 01/12/17 12:54 Oxycodone/Acetaminophen (Percocet 325-5 Mg) 1 - 2 tab PO Q4H PRN PRN Reason: Pain Last Admin: 01/12/17 07:53 Dose: 1 tab Povidone Iodine (Betadine 10% Soln) Confirm Administered Dose 1 ml .ROUTE .STK- MED ONE Stop: 01/11/17 09:03 Propofol (Diprivan 20 Ml) Confirm Administered Dose 200 mg .ROUTE .STK-MED ONE Stop: 01/11/17 07:21 Propofol (Diprivan 20 Ml) Confirm Administered Dose 600 mg .ROUTE .STK-MED ONE Stop: 01/11/17 08:32 Propofol (Diprivan 20 Ml) Confirm Administered Dose 600 mg .ROUTE .STK-MED ONE Stop: 01/11/17 08:32 Propofol (Diprivan 20 Ml) Confirm Administered Dose 600 mg .ROUTE .STK-MED ONE Stop: 01/11/17 09:30 Propofol (Diprivan 20 Ml) Confirm Administered Dose 200 mg .ROUTE .STK-MED ONE Stop: 01/12/17 12:54 Rocuronium [place] (Zemuron) Confirm Administered Dose 50 mg .ROUTE .STK-MED ONE Stop: 01/11/17 07:21 Rocuronium [place] (Zemuron) Confirm Administered Dose 50 mg .ROUTE .STK-MED ONE Stop: 01/11/17 08:02 Rocuronium [place] (Zemuron) Confirm Administered Dose 50 mg .ROUTE .STK-MED ONE Stop: 01/12/17 12:54 Succinylcholine Chloride (Succinylcholine In Ns Pf) Confirm Administered Dose 200 mg .ROUTE .STK-MED ONE Stop: 01/11/17 07:21 Succinylcholine Chloride (Succinylcholine In Ns Pf) Confirm Administered Dose 200 mg .ROUTE .STK-MED ONE Stop: 01/12/17 12:54 Thrombin (Thrombin-Jmi) Confirm Administered Dose 25,000 unit .ROUTE .STK-MED ONE Stop: 01/11/17 06:51 Last Admin: 01/11/17 11:00 Dose: 10,000 unit Thrombin (Thrombin-Jmi) Confirm Administered Dose 5,000 unit .ROUTE .STK-MED ONE Stop: 01/11/17 06:52 Thrombin (Thrombin-Jmi) Confirm Administered Dose 5,000 unit .ROUTE .STK-MED ONE Stop: 01/11/17 07:55 - Exam General: alert, oriented Extremities: Normal Inspection, Normal Range of Motion, Non-Tender Skin: warm, dry, intact Wound/Incisions: healing well, dressing dry and intact - Problem List Review Problem List Initiated/Reviewed/Updated: Yes - Plan Plan:: [place] is a pleasant 61-year-old male who is status post postop day 2 of an anterior fusion of L5-S1. He is doing very well. His pain is under control. He is urinating without difficulties. He does not that he has more pain when he is lying down and tries to cough. He also notes that he feels slightly constipated. Assessment: Patient's dressing is clean dry and intact. MARIE drains are present. Plan: Continue to monitor his pain. Encourage ambulation for bowel movement. Encourage PT/OT. Will consider residential placement on discharge.
[2017-01-14] MEDS: HYDROmorphone 2 MG Tab PO PRN ×2 (14:19→21:56)
--- NOTE | 2017-01-14 17:36 | OR ---
DATE OF PROCEDURE: 01/12/2017 PREOPERATIVE DIAGNOSES: Postoperative bleeding probably from rectus muscle, extensive rectus, and retroperitoneal hematoma. POSTOPERATIVE DIAGNOSES: Bleeding left inferior epigastric artery with rectus hematoma extending into retroperitoneum. OPERATIVE PROCEDURES: Exploration of left retroperitoneal area with; 1. Evacuation of rectus and retroperitoneal hematoma (98019). 2. Ligation of inferior epigastric artery (36140). ANESTHESIA: General. INDICATION FOR PROCEDURE: Please see progress note dated today. Potential risks were reviewed with the patient including further bleeding, infection, problems with the foreign body related to the ALIF procedure becoming infected and the possibility of cardiopulmonary, septic, or hemorrhagic complications leading to were all discussed, and the patient wished to proceed. DETAILS OF PROCEDURE: The patient was taken to the operating room and placed in a supine position. He had Mag[place] catheters already in place. After general endotracheal anesthesia was induced, the abdomen was prepped and draped. The evangelina placed yesterday were then taken out, as was the subcutaneous and fascial sutures. The Jose-Lambert drain placed in the subcutaneous tissue was also removed at this time. Upon entering the area behind the rectus sheath and extending from that point, extending into the retroperitoneum, large amount of hematoma was present. Roughly, a 1 L of this hematoma was evacuated. The patient appeared to have some slight oozing from the area of the inferior epigastric incision along the superior aspect of the area of exposure. Based on the intensity of hematoma within the tissues in that area, this would be likely the site of the postoperative bleeding. The artery was then identified and ligated proximally and distally with [id number] stitches of 3-0 Vicryl stitch. After evacuation of the hematoma, the area was irrigated with a combination of meropenem and Zyvox irrigation. This was irrigated until all the clot was removed. Careful examination of the area around the aorta, vena cava, and iliac vessels was undertaken, and there did not appear to be any bleeding from those areas or the adjacent retroperitoneum. Two Jose- Lambert drains were then placed through stab wounds lateral to the incision and placed into the retroperitoneum. The anterior rectus sheath was then reapproximated with #2 Vicryl stitch. An additional 10-Hebrew round Jose-Lambert drain was placed in the subcutaneous tissue, over which the subcutaneous tissue was closed with 3-0 Vicryl stitch and the skin with evangelina. The drain was affixed with some 3-0 Vicryl stitch as well. The patient was taken to the recovery room in satisfactory condition. The patient had minimal additional blood loss beyond 1 L of blood present. He did not require any additional transfusions of blood during the procedure, and developed quite stable vital signs with good urine output. He did receive one additional dose of activated factor VII to consolidate any tendency to have any additional bleeding. Addi Mahan MD /[id number]
--- NOTE | 2017-01-14 17:42 | PN ---
DATE OF SERVICE: 01/12/2017 Mr. Sheridan underwent an anterior lumbar interbody fusion procedure yesterday. Overnight, he has required quite a bit of extra fluid at times with minimal urine output. Preoperative hemoglobin was 13, and recheck hemoglobin was 9.5. The patient at this point has received 3 units packed RBCs. He continues to be marginal in terms of vital signs and urine output. He has received two doses of activated factor VII as well to try to minimize bleeding. The overall picture at this point I think would warrant exploration of the area with evacuation of hematoma and control bleeding, in this case with being foreign body type material within the disk spaces that only is in contact with the hematoma. Evacuation of this to minimize infection would be warranted and also need to make sure that the bleeding is controlled at this time. The patient is alert and conversant, appears to understand the situation. Plan is to proceed with exploration of that area early this afternoon with evacuation of hematoma and control of bleeding. Potential risks of the procedure were reviewed with the patient and he wishes to proceed. Addi Mahan MD /[id number]
[2017-01-15] MEDS: Dextrose 5%-Lactated Ringers 1,000 ML IV SCH (00:17)
[2017-01-15] MEDS: Acetaminophen 325 MG Tab PO SCH ×4 (02:13→19:52)
[2017-01-15] MEDS: Albuterol/Ipratropium 3.0-0.5 MG/3 ML Neb Soln INH SCH (07:14)
[2017-01-15] MEDS ORDERED: Furosemide 20 MG/2 ML VIAL IVPUSH ONE (07:30)
[2017-01-15] MEDS ORDERED: Sodium Chloride 0.9% 10 ML Syringe IV PRN (07:35)
[2017-01-15] MEDS: CLOZARIL 100 MG PO SCH ×3 (08:30→21:46)
[2017-01-15] MEDS: FLUoxetine 20 MG Cap PO SCH (08:31)
[2017-01-15] MEDS: Allopurinol 100 MG Tab PO SCH ×2 (08:31→21:48)
[2017-01-15] MEDS: Magnesium Sulfate/Water 2 GM in Premix Bag 1 BAG IV SCH ×3 (08:31→19:52)
[2017-01-15] MEDS: Bisacodyl 5 MG Tab PO SCH ×2 (08:31→21:08)
[2017-01-15] MEDS: ClonazePAM 1 MG Tab PO SCH ×3 (08:32→21:45)
[2017-01-15] MEDS: ARIPiprazole 10 MG Tab PO SCH (08:32)
[2017-01-15] MEDS: Divalproex Sodium 250 MG Tab.ER PO SCH ×3 (08:32→21:45)
[2017-01-15] MEDS: Lisinopril 20 MG Tab PO SCH (08:32)
[2017-01-15] MEDS: Pantoprazole 40 MG Tab.CR PO SCH (08:32)
[2017-01-15] MEDS: Docusate Sodium 100 MG Cap PO SCH ×2 (08:32→21:48)
[2017-01-15] MEDS: Oxybutynin 5 MG Tab PO SCH ×2 (08:33→21:48)
[2017-01-15] MEDS: HYDROmorphone 2 MG Tab PO PRN (13:48)
[2017-01-16] MEDS: Magnesium Sulfate/Water 2 GM in Premix Bag 1 BAG IV SCH ×2 (02:08→07:27)
[2017-01-16] MEDS: Acetaminophen 325 MG Tab PO SCH ×2 (02:08→08:13)
[2017-01-16] MEDS ORDERED: Sodium Chloride 0.9% 500 ML IV ONE (02:10)
[2017-01-16] MEDS: Pantoprazole 40 MG Tab.CR PO SCH (07:27)
[2017-01-16] MEDS: ARIPiprazole 10 MG Tab PO SCH (08:13)
[2017-01-16] MEDS: FLUoxetine 20 MG Cap PO SCH (08:14)
[2017-01-16] MEDS: Allopurinol 100 MG Tab PO SCH ×2 (08:14→21:01)
[2017-01-16] MEDS: Docusate Sodium 100 MG Cap PO SCH ×2 (08:15→20:56)
[2017-01-16] MEDS: Oxybutynin 5 MG Tab PO SCH ×2 (08:15→20:57)
[2017-01-16] MEDS: Divalproex Sodium 250 MG Tab.ER PO SCH ×3 (09:54→20:57)
--- NOTE | 2017-01-16 10:23 | PN ---
DATE OF SERVICE: 01/15/2017 SUBJECTIVE: The patient has been afebrile with stable vital signs. A little bit short of breath on getting up today and we will give him some IV Lasix. Otherwise, the labs look satisfactory and oral intake is better. He is moving his bowels and we will discontinue the scheduled Dulcolax, continue on the Colace. Magnesium is somewhat low and we will supplement that in the next 48 hours and the plan will be to go to a rehab facility probably on Tuesday. Addi Mahan MD /[id number]
[2017-01-16] MEDS ORDERED: ClonazePAM 1 MG Tab ONE (11:13)
[2017-01-16] MEDS: ClonazePAM 1 MG Tab PO SCH ×4 (11:17→21:07)
[2017-01-16] MEDS: CLOZARIL 100 MG PO SCH ×3 (11:20→20:59)
--- NOTE | 2017-01-16 11:50 | PCM.CONS ---
H&P History of Present Illness - General Date of Service: 01/16/17 Admit Problem/Dx: Admission Diagnosis/Problem Admission Diagnosis/Problem Surgical procedure Source of Information: Patient, RN Notes Reviewed History Limitations: Reports: No Limitations - History of Present Illness Initial Comments - Free Text/Narative: Kashmir was admitted for an anterior lumbar interbody fusion. His postoperative course was complicated by a rectus sheath hematoma. I was asked to see him today by Dr. Mahan regarding management of intermittent somnolence. Kashmir has a history of schizophrenia requiring the use of multiple medications to control symptoms. He reports today is a pretty good day in general but he does admit over the past few days he's had episodes where he is extremely fatigued and needs a nap. Nursing staff have noted that he is intermittently very lethargic but seems a little bit better today. He reports that his pain has been improving daily and his ambulation has been improving. He sleeps fairly well at night. In general he feels his mental illness has been well-managed and has not had significant difficulties with anxiety during the hospital stay. He has not noticed a pattern with the somnolence and it seems to come and go intermittently during the day. It is not obviously related to his pain medications. He has noticed progressive swelling of his lower extremities as well as his penis and scrotum. Left Hip Pain Score (Numeric/FACES): 10 Abdomen Pain Score (Numeric/FACES): 2 - Related Data Allergies/Adverse Reactions: Allergies Allergy/AdvReac Type Severity Reaction Status Date / Time indomethacin Allergy Rash Verified 01/11/17 05:57 Dvhdzkx-Gin-Yoi Reductase Allergy Cannot Verified 01/11/17 05:57 Inhibitor Remember Home Medications: Home Meds ARIPiprazole [Aripiprazole] 15 mg PO DAILY 11/30/16 [History] Acetaminophen with Codeine [Acetaminophen-Cod #3] 1 tab PO Q6H PRN 11/30/16 [ History] Allopurinol [Zyloprim] 200 mg PO BID 11/30/16 [History] Aspirin 81 mg PO DAILY 11/30/16 [History] ClonazePAM [KlonoPIN] 2 mg PO TID 11/30/16 [History] Clopidogrel [Plavix] 75 mg PO DAILY 11/30/16 [History] Divalproex Sodium 500 mg PO TID 11/30/16 [History] FLUoxetine HCl [Fluoxetine HCl] 40 mg PO DAILY 11/30/16 [History] Lisinopril 20 mg PO DAILY 11/30/16 [History] Multivitamin W-Minerals/Lutein [Vision Plus Lutein Vitamin] 1 each PO DAILY 12/11 [History] Nitroglycerin [Nitrostat] 0.4 mg SL ASDIRECTED 11/30/16 [History] Omeprazole 20 mg PO DAILY 11/30/16 [History] Oxybutynin Chloride [Ditropan Xl] 10 mg PO DAILY 11/30/16 [History] atorvaSTATin [Lipitor] 5 mg PO DAILY 11/30/16 [History] cloZAPine [Clozaril] 100 mg PO .NOON 11/30/16 [History] cloZAPine 150 mg PO 0800 01/07/17 [History] cloZAPine 500 mg PO 1700 01/07/17 [History] Past Medical History HEENT History: Reports: Impaired Vision Cardiovascular History: Reports: High Cholesterol, Hypertension, Stents Respiratory History: Reports: Asthma Gastrointestinal History: Reports: GERD Genitourinary History: Reports: Other (See Below) Other Genitourinary History: overactive bladder Musculoskeletal History: Reports: Fracture, Gout, Other (See Below) Other Musculoskeletal History: low back pain Psychiatric History: Reports: Anxiety, Depression, Schizophrenia Endocrine/Metabolic History: Reports: Obesity/BMI 30+ - Infectious Disease History Infectious Disease History: Reports: Mumps - Past Surgical History HEENT Surgical History: Reports: None Cardiovascular Surgical History: Reports: Carotid Stents Respiratory Surgical History: Reports: None GI Surgical History: Reports: Colonoscopy Male Surgical History: Reports: None Endocrine Surgical History: Reports: None Musculoskeletal Surgical History: Reports: None Social & Family History - Family History Cardiac: Denies: CAD - Tobacco Use Smoking Status *Q: Never Smoker Second Hand Smoke Exposure: No - Caffeine Use Caffeine Use: Reports: Soda - Alcohol Use Alcohol Use History: No - Recreational Drug Use Recreational Drug Use: No H&P Review of Systems - Review of Systems: Review Of Systems: See Below Free Text/Narrative: A complete 12 point review of systems was obtained. Pertinent positives and negatives are noted in the history of present illness. All other systems were reviewed and were negative except as noted. Exam - Exam Exam: See Below - Vital Signs Vital Signs: Last Vital Signs Temp 36.6 C 01/16/17 10:35 Pulse 95 01/16/17 10:35 Resp 16 01/16/17 10:35 BP 135/90 01/16/17 10:35 Pulse Ox 96 01/16/17 10:35 Weight: 123.831 kg - Exam Quality Assessment: Supplemental Oxygen General: Alert, Oriented, Cooperative. No: Mild Distress HEENT: Conjunctiva Clear, Mucosa Moist & [place]. No: Scleral Icterus Neck: Supple, Trachea Midline. No: Lymphadenopathy Lungs: Normal Respiratory Effort, Decreased Breath Sounds (Mild at the bases), Rales (Few at the bases) Cardiovascular: Regular Rate, Regular Rhythm GI/Abdominal Exam: Soft, No Distention Extremities: Other (Pitting edema of both lower legs to the knee). No: Increased Warmth Peripheral Pulses: 1+: Dorsalis Pedis (L), Dorsalis Pedis (R) Skin: Warm, Dry, Intact Neuro Extensive - Mental Status: Alert, Oriented x3, Nl Response to Commands Neuro Extensive - Motor, Sensory, Reflexes: CN II-XII Intact. No: Facial Palsy (R), Abnormal Motor, Tremor Psychiatric: Alert, Normal Affect - Patient Data Lab Results Last 24 hrs: Laboratory Results - last 24 hr 01/11/17 01/16/17 01/16/17 Range/Units 06:15 04:06 04:06 WBC 7.9 (4.5-11.0) K/uL RBC 3.40 L (4.30-5.90) M/uL Hgb 10.5 L (12.0-15.0) g/dL Hct 32.5 L (40.0-54.0) % MCV 96 (80-98) fL MCH 31 (27-31) pg MCHC 32 (32-36) % Plt Count 224 (150-400) K/uL Sodium 139 L (140-148) mmol/L Potassium 4.3 (3.6-5.2) mmol/L Chloride 102 (100-108) mmol/L Carbon Dioxide 32 (21-32) mmol/L Anion Gap 9.3 (5.0-14.0) mmol/L BUN 16 (7-18) mg/dL Creatinine 1.2 (0.8-1.3) mg/dL Est Cr Clr Drug Dosing 67.59 mL/min Estimated GFR (MDRD) > 60 (>60) Glucose 114 H (74-106) mg/dL Calcium 8.2 L (8.5-10.1) mg/dL Wpc-[id number]-[id number] Pept 119 (5-125) pg/mL Blood Type O POSITIVE Gel Antibody Screen Negative Crossmatch See Detail Result Diagrams: 01/16/17 04:06 01/16/17 04:06 Consult PN Assessment/Plan POD#: 5 Procedures: Procedures BLOOD TYPING SEROLOGIC ABO (12/31/16) BLOOD TYPING SEROLOGIC RH(D) (12/31/16) CULTURE OTHR SPECIMN AEROBIC (12/02/16) RBC ANTIBODY SCREEN (12/31/16) ROUTINE VENIPUNCTURE (12/31/16) X-RAY EXAM L-2 SPINE 4/>VWS (12/02/16) Problem List Initiated/Reviewed/Updated: Yes My Orders last 24 hours: My Active Orders 01/16/17 11:49 Furosemide [Lasix] 80 mg PO ONETIME ONE 01/16/17 14:00 Acetaminophen [Tylenol Extra Strength] 1,000 mg PO TID ClonazePAM [KlonoPIN] 1 mg PO TID 01/17/17 09:00 Furosemide [Lasix] 80 mg PO DAILY Plan: Assessment and plan - Intermittent somnolence and mild confusion - I suspect this is medication related and he is on multiple psychoactive medications. He has fairly profound schizophrenia and I think that changing his antipsychotics or mood stabilizers would potentially have troublesome effects. I think the safest medication to decrease at least in the short-term would be his benzodiazepine. He has not been taking excessive pain medications. I would expect that he'll be able to return to his usual medication regimen at the time of discharge. I do not see any evidence for infection at this time and metabolically he appears stable. -Continue Abilify, Clozaril and divalproex -Decrease clonazepam to 1 mg 3 times a day -Scheduled Tylenol to reduce the amount of narcotics that he needs Volume overload - patient has significant lower extremity as well as scrotal edema and some crackles on his lung exam. He did receive a fair amount of volume with the resuscitation right after surgery during his hemorrhage. He received a dose of IV furosemide yesterday. -By mouth furosemide this afternoon and again tomorrow morning -Reassess volume status tomorrow Lumbar spinal stenosis status post ALIF - clinically doing well and pain control is adequate. -Postop cares per surgical team Thank you for the interesting consultation. The hospitalist service will continue to follow along. Ernesto Greenwood M.D. Requesting Provider: Dr. Mahan Date Consult Requested: 01/16/17 Reason for Consult: Somnolence Patient History Reviewed: Yes Admission H&P Reviewed: No Notified Requestor: No Time Spent (in minutes): 50
[2017-01-16] MEDS ORDERED: Furosemide 80 MG Tab PO ONE (12:15)
[2017-01-16] MEDS: Acetaminophen 500 MG Tab PO SCH ×2 (13:01→21:00)
[2017-01-17] MEDS: HYDROmorphone 2 MG Tab PO PRN (00:39)
[2017-01-17] MEDS: Pantoprazole 40 MG Tab.CR PO SCH (07:33)
--- NOTE | 2017-01-17 08:03 | PCM.PN ---
- General Info Date of Service: 01/17/17 Functional Status: Reports: Pain Controlled, Tolerating Diet, Ambulating, Urinating - Patient Data Vitals - most recent: Last Vital Signs Temp 36.2 C 01/17/17 07:20 Pulse 96 01/17/17 07:20 Resp 20 01/17/17 07:20 BP 135/80 01/17/17 07:20 Pulse Ox 94 L 01/17/17 07:20 Weight - most recent: 283 lb 6.4 oz I&O - last 24 hours: Intake & Output 01/16/17 01/17/17 01/17/17 22:59 06:59 14:59 Intake Total 490 500 Output Total 1000 783 420 Balance -074 -283 -420 Med Orders - Current: Current Medications Acetaminophen (Tylenol Extra Strength) 1,000 mg PO TID [facility] Last Admin: 01/16/17 21:00 Dose: 1,000 mg Albuterol/Ipratropium (Duoneb 3.0-0.5 Mg/3 Ml) 3 ml INH ASDIRECTED PRN PRN Reason: Shortness of Breath Last Admin: 01/15/17 02:22 Dose: 3 ml Allopurinol (Zyloprim) 200 mg PO BID [facility] Last Admin: 01/16/17 21:01 Dose: 200 mg Aripiprazole (Abilify) 15 mg PO DAILY [facility] Last Admin: 01/16/17 08:13 Dose: 15 mg Clonazepam (Klonopin) 1 mg PO TID [facility] Last Admin: 01/16/17 21:07 Dose: 1 mg Divalproex Sodium (Depakote Er) 500 mg PO TID [facility] Last Admin: 01/16/17 20:57 Dose: 500 mg Docusate Sodium (Colace) 100 mg PO BID [facility] Last Admin: 01/16/17 20:56 Dose: 100 mg Fluoxetine HCl (Prozac) 40 mg PO DAILY [facility] Last Admin: 01/16/17 08:14 Dose: 40 mg Furosemide (Lasix) 80 mg PO DAILY [facility] Stop: 01/17/17 09:01 Nitroglycerin (Nitrostat) 0.4 mg SL ASDIRECTED PRN PRN Reason: Chest Pain Ondansetron HCl (Zofran) 4 mg IVPUSH Q4H PRN PRN Reason: Nausea Oxybutynin Chloride (Oxybutynin) 5 mg PO BID [facility] Last Admin: 01/16/17 20:57 Dose: 5 mg Pantoprazole Sodium (Protonix) 40 mg PO ACBREAKFAST [facility] Last Admin: 01/17/17 07:33 Dose: 40 mg Clozaril 100mg (Ptom ()) 0 each PO BEDTIME [facility] Last Admin: 01/16/17 20:59 Dose: 1 each Clozaril 100mg (Ptom ()) 0 each PO DAILY@0800 [facility] Last Admin: 01/16/17 11:20 Dose: Not Given Clozaril 100mg (Ptom ()) 0 each PO DAILY@1200 [facility] Last Admin: 01/16/17 13:00 Dose: 1 each Discontinued Medications Acetaminophen (Tylenol) 650 mg PO Q6H [facility] Last Admin: 01/16/17 08:13 Dose: 650 mg Albuterol/Ipratropium (Duoneb 3.0-0.5 Mg/3 Ml) 3 ml INH QIDRT [facility] Last Admin: 01/15/17 07:14 Dose: 3 ml Aspirin (Halfprin) 81 mg PO DAILY [facility] Last Admin: 01/12/17 09:41 Dose: Not Given Bisacodyl (Dulcolax) 20 mg PO BID [facility] Last Admin: 01/15/17 21:08 Dose: Not Given Clonazepam (Klonopin) 2 mg PO TID [facility] Last Admin: 01/16/17 11:19 Dose: Not Given Clonazepam (Klonopin) Confirm Administered Dose 2 mg .ROUTE .STK-MED ONE Stop: 01/16/17 11:14 Last Admin: 01/16/17 11:18 Dose: Not Given Dexamethasone (Dexamethasone) Confirm Administered Dose 4 mg .ROUTE .STK-MED ONE Stop: 01/11/17 07:21 Dexamethasone (Dexamethasone) Confirm Administered Dose 4 mg .ROUTE .STK-MED ONE Stop: 01/12/17 12:54 Enoxaparin Sodium (Lovenox) 40 mg SUBCUT DAILY [facility] Last Admin: 01/12/17 09:41 Dose: Not Given Factor VIIa (Recombinant) (Novoseven Rt) 2,000 mcg IVPUSH ONETIME ONE Stop: 01/12/17 09:16 Last Admin: 01/12/17 09:19 Dose: 2,000 mcg Factor VIIa (Recombinant) (Novoseven Rt) 2,000 mcg IVPUSH ONETIME ONE Stop: 01/12/17 10:01 Last Admin: 01/12/17 10:32 Dose: 2,000 mcg Factor VIIa (Recombinant) (Novoseven Rt) 2,000 mcg IVPUSH ONETIME ONE Stop: 01/12/17 14:16 Last Admin: 01/12/17 14:20 Dose: 1 mcg Fentanyl (Sublimaze) Confirm Administered Dose 500 mcg .ROUTE .STK-MED ONE Stop: 01/11/17 07:21 Fentanyl (Sublimaze) Confirm Administered Dose 250 mcg .ROUTE .STK-MED ONE Stop: 01/11/17 10:47 Fentanyl (Sublimaze) Confirm Administered Dose 250 mcg .ROUTE .STK-MED ONE Stop: 01/12/17 12:54 Furosemide (Lasix) 10 mg IV ONETIME ONE Stop: 01/12/17 15:31 Last Admin: 01/12/17 15:51 Dose: 10 mg Furosemide (Lasix) 20 mg IVPUSH ONETIME ONE Stop: 01/15/17 07:31 Last Admin: 01/15/17 08:39 Dose: 20 mg Furosemide (Lasix) 80 mg PO ONETIME ONE Stop: 01/16/17 12:16 Last Admin: 01/16/17 13:00 Dose: 80 mg Glycopyrrolate () Confirm Administered Dose 1 mg .ROUTE .STK-MED ONE Stop: 01/11/17 07:21 Glycopyrrolate () Confirm Administered Dose 1 mg .ROUTE .STK-MED ONE Stop: 01/12/17 12:54 Hydromorphone HCl (Dilaudid Digital Specialist 15 Mg In Ns 30 Ml) 0 mg IV ASDIRECTED PRN; Protocol PRN Reason: Pain Last Admin: 01/11/17 12:12 Dose: 0.3 mg Hydromorphone HCl (Dilaudid Digital Specialist 15 Mg In Ns 30 Ml) 0 mg IV ASDIRECTED PRN; Protocol PRN Reason: [employer] PAIN CONTROL Last Admin: 01/12/17 15:30 Dose: 15 mg Hydromorphone HCl (Dilaudid) 2 - 4 mg PO Q4H PRN PRN Reason: Pain Last Admin: 01/17/17 00:39 Dose: 2 mg Lactated Ringer's (Ringers, Lactated) 1,000 mls @ 0 mls/hr IV ASDIRECTED [facility] PRN Reason: KVO Last Admin: 01/11/17 06:19 Dose: 25 mls/hr Cefazolin Sodium 2 gm/ Sodium (Chloride) 50 mls @ 100 mls/hr IV ONETIME ONE Stop: 01/11/17 07:29 Last Admin: 01/11/17 07:25 Dose: 100 mls/hr Ketamine HCl 100 mg/ Sodium (Chloride) 100 mls @ 21 mls/hr IV ASDIRECTED [facility] Linezolid (Zyvox) Confirm Administered Dose 100 mls @ as directed .ROUTE .[facility] ONE Stop: 01/11/17 06:51 Lactated Ringer's (Ringers, Lactated) Confirm Administered Dose 1,000 mls @ as directed .ROUTE .STK-MED ONE Stop: 01/11/17 09:07 Lactated Ringer's (Ringers, Lactated) Confirm Administered Dose 1,000 mls @ as directed .ROUTE .[facility] ONE Stop: 01/11/17 09:07 Dextrose/Lactated Ringer's (Dextrose 5%-Lactated Ringers) 1,000 mls @ 150 mls/ hr IV ASDIRECTED [facility] Last Admin: 01/13/17 04:10 Dose: 150 mls/hr Cefazolin Sodium 2 gm/ Sodium (Chloride) 50 mls @ 100 mls/hr IV Q8H [facility] Stop: 01/12/17 06:59 Last Admin: 01/12/17 05:57 Dose: 100 mls/hr Lactated Ringer's (Ringers, Lactated) 500 mls @ 500 mls/hr IV ONETIME ONE Stop: 01/11/17 21:14 Last Admin: 01/11/17 20:20 Dose: 500 mls/hr Lactated Ringer's (Ringers, Lactated) 500 mls @ 500 mls/hr IV ONETIME ONE Stop: 01/11/17 23:14 Last Admin: 01/11/17 22:36 Dose: 500 mls/hr Lactated Ringer's (Ringers, Lactated) 500 mls @ 500 mls/hr IV ASDIRECTED [facility] Lactated Ringer's (Ringers, Lactated) 500 mls @ 500 mls/hr IV ASDIRECTED [facility] Stop: 01/12/17 04:15 Last Admin: 01/12/17 03:15 Dose: 500 mls/hr Doxycycline Hyclate 100 mg/ (Sodium Chloride) 100 mls @ 100 mls/hr IV ONCALL ONE Stop: 01/12/17 13:29 Last Admin: 01/12/17 13:20 Dose: 100 mls/hr Linezolid (Zyvox) Confirm Administered Dose 100 mls @ as directed .ROUTE .STK- MED ONE Stop: 01/12/17 13:40 Lactated Ringer's (Ringers, Lactated) Confirm Administered Dose 1,000 mls @ as directed .ROUTE .STK-MED ONE Stop: 01/12/17 13:53 Dextrose/Lactated Ringer's (Dextrose 5%-Lactated Ringers) 1,000 mls @ 80 mls/ hr IV ASDIRECTED [facility] Last Admin: 01/15/17 00:17 Dose: 80 mls/hr Magnesium Sulfate 2 gm/ Premix 50 mls @ 25 mls/hr IV Q6H [facility] Stop: 01/17/17 03:59 Last Admin: 01/16/17 07:27 Dose: 25 mls/hr Sodium Chloride (Normal Saline) 500 mls @ 25 mls/hr IV .BOLUS ONE Stop: 01/16/17 22:09 Last Admin: 01/16/17 02:00 Dose: 25 mls/hr Ketamine HCl (Ketalar) 35 mg IV ASDIRECTED [facility] Linezolid (Zyvox) 200 mg IRR .STK-MED ONE Stop: 01/11/17 11:01 Last Admin: 01/11/17 11:00 Dose: 200 mg Linezolid (Zyvox) 200 mg IRR .STK-MED ONE Stop: 01/12/17 14:01 Last Admin: 01/12/17 14:00 Dose: 200 mg Lisinopril (Prinivil) 20 mg PO DAILY [facility] Last Admin: 01/15/17 08:32 Dose: 20 mg Magnesium Hydroxide (Milk Of Magnesia) 30 ml PO BID [facility] Meropenem (Merrem) Confirm Administered Dose 500 mg .ROUTE .STK-MED ONE Stop: 01/12/17 13:40 Last Admin: 01/12/17 15:07 Dose: 500 mg Naloxone HCl (Narcan) 0.1 mg IVPUSH Q5M PRN PRN Reason: Respiratory Distress Naloxone HCl (Narcan) 0.1 mg IV ASDIRECTED PRN PRN Reason: decreased respiratory rate Neostigmine Methylsulfate (Neostigmine) Confirm Administered Dose 5 mg .ROUTE .STK-MED ONE Stop: 01/11/17 07:21 Neostigmine Methylsulfate (Neostigmine) Confirm Administered Dose 5 mg .ROUTE .STK-MED ONE Stop: 01/12/17 12:54 Non-Formulary Medication (Total Parenteral Nutrition, Central) 1,000 ml .XX .Continue Order MOHSEN Ondansetron HCl (Zofran) Confirm Administered Dose 4 mg .ROUTE .STK-MED ONE Stop: 01/11/17 07:21 Ondansetron HCl (Zofran) Confirm Administered Dose 4 mg .ROUTE .STK-MED ONE Stop: 01/12/17 12:54 Oxycodone/Acetaminophen (Percocet 325-5 Mg) 1 - 2 tab PO Q4H PRN PRN Reason: Pain Last Admin: 01/12/17 07:53 Dose: 1 tab Povidone Iodine (Betadine 10% Soln) Confirm Administered Dose 1 ml .ROUTE .STK- MED ONE Stop: 01/11/17 09:03 Propofol (Diprivan 20 Ml) Confirm Administered Dose 200 mg .ROUTE .STK-MED ONE Stop: 01/11/17 07:21 Propofol (Diprivan 20 Ml) Confirm Administered Dose 600 mg .ROUTE .STK-MED ONE Stop: 01/11/17 08:32 Propofol (Diprivan 20 Ml) Confirm Administered Dose 600 mg .ROUTE .STK-MED ONE Stop: 01/11/17 08:32 Propofol (Diprivan 20 Ml) Confirm Administered Dose 600 mg .ROUTE .STK-MED ONE Stop: 01/11/17 09:30 Propofol (Diprivan 20 Ml) Confirm Administered Dose 200 mg .ROUTE .STK-MED ONE Stop: 01/12/17 12:54 Rocuronium [place] (Zemuron) Confirm Administered Dose 50 mg .ROUTE .STK-MED ONE Stop: 01/11/17 07:21 Rocuronium [place] (Zemuron) Confirm Administered Dose 50 mg .ROUTE .STK-MED ONE Stop: 01/11/17 08:02 Rocuronium [place] (Zemuron) Confirm Administered Dose 50 mg .ROUTE .STK-MED ONE Stop: 01/12/17 12:54 Sodium Chloride (Saline Flush) 10 ml IV ASDIRECTED PRN PRN Reason: [employer] Succinylcholine Chloride (Succinylcholine In Ns Pf) Confirm Administered Dose 200 mg .ROUTE .STK-MED ONE Stop: 01/11/17 07:21 Succinylcholine Chloride (Succinylcholine In Ns Pf) Confirm Administered Dose 200 mg .ROUTE .STK-MED ONE Stop: 01/12/17 12:54 Thrombin (Thrombin-Jmi) Confirm Administered Dose 25,000 unit .ROUTE .STK-MED ONE Stop: 01/11/17 06:51 Last Admin: 01/11/17 11:00 Dose: 10,000 unit Thrombin (Thrombin-Jmi) Confirm Administered Dose 5,000 unit .ROUTE .STK-MED ONE Stop: 01/11/17 06:52 Thrombin (Thrombin-Jmi) Confirm Administered Dose 5,000 unit .ROUTE .STK-MED ONE Stop: 01/11/17 07:55 - Exam General: alert, oriented Skin: warm, dry, intact Wound/Incisions: healing well, dressing dry and intact - Problem List Review Problem List Initiated/Reviewed/Updated: Yes - Plan Plan:: Kashmir is a pleasant 61-year-old male who is status post postop day 6 of an anterior fusion of L5-S1. He is doing very well. His pain is under control. He is urinating without difficulties. Assessment: Patient's dressing is clean dry and intact. Plan: Continue to monitor his pain. Encourage ambulation for bowel movement. Encourage PT/OT. He is discharged from orthopedic services at this time.
[2017-01-17] MEDS ORDERED: Furosemide 80 MG Tab PO SCH (09:00)
--- NOTE | 2017-01-17 09:17 | PCM.PN ---
- General Info Date of Service: 01/16/17 Functional Status: Reports: Pain Controlled, Tolerating Diet, Ambulating, Urinating - Review of Systems General: Reports: No Symptoms Neurological: Reports: No Symptoms - Patient Data Vitals - most recent: Last Vital Signs Temp 35.6 C 01/17/17 08:39 Pulse 103 H 01/17/17 08:39 Resp 14 01/17/17 08:39 BP 124/76 01/17/17 08:39 Pulse Ox 97 01/17/17 08:39 Weight - most recent: 283 lb 6.4 oz I&O - last 24 hours: Intake & Output 01/16/17 01/17/17 01/17/17 22:59 06:59 14:59 Intake Total 490 500 Output Total 1000 783 420 Balance -510 -283 -420 Med Orders - Current: Current Medications Acetaminophen (Tylenol Extra Strength) 1,000 mg PO TID [facility] Last Admin: 01/16/17 21:00 Dose: 1,000 mg Albuterol/Ipratropium (Duoneb 3.0-0.5 Mg/3 Ml) 3 ml INH ASDIRECTED PRN PRN Reason: Shortness of Breath Last Admin: 01/15/17 02:22 Dose: 3 ml Allopurinol (Zyloprim) 200 mg PO BID [facility] Last Admin: 01/16/17 21:01 Dose: 200 mg Aripiprazole (Abilify) 15 mg PO DAILY [facility] Last Admin: 01/16/17 08:13 Dose: 15 mg Clonazepam (Klonopin) 1 mg PO TID [facility] Last Admin: 01/16/17 21:07 Dose: 1 mg Divalproex Sodium (Depakote Er) 500 mg PO TID [facility] Last Admin: 01/16/17 20:57 Dose: 500 mg Docusate Sodium (Colace) 100 mg PO BID [facility] Last Admin: 01/16/17 20:56 Dose: 100 mg Fluoxetine HCl (Prozac) 40 mg PO DAILY [facility] Last Admin: 01/16/17 08:14 Dose: 40 mg Nitroglycerin (Nitrostat) 0.4 mg SL ASDIRECTED PRN PRN Reason: Chest Pain Ondansetron HCl (Zofran) 4 mg IVPUSH Q4H PRN PRN Reason: Nausea Oxybutynin Chloride (Oxybutynin) 5 mg PO BID [facility] Last Admin: 01/16/17 20:57 Dose: 5 mg Pantoprazole Sodium (Protonix) 40 mg PO ACBREAKFAST [facility] Last Admin: 01/17/17 07:33 Dose: 40 mg Clozaril 100mg (Ptom ()) 0 each PO BEDTIME [facility] Last Admin: 01/16/17 20:59 Dose: 1 each Clozaril 100mg (Ptom ()) 0 each PO DAILY@0800 [facility] Last Admin: 01/16/17 11:20 Dose: Not Given Clozaril 100mg (Ptom ()) 0 each PO DAILY@1200 [facility] Last Admin: 01/16/17 13:00 Dose: 1 each Discontinued Medications Acetaminophen (Tylenol) 650 mg PO Q6H [facility] Last Admin: 01/16/17 08:13 Dose: 650 mg Albuterol/Ipratropium (Duoneb 3.0-0.5 Mg/3 Ml) 3 ml INH QIDRT [facility] Last Admin: 01/15/17 07:14 Dose: 3 ml Aspirin (Halfprin) 81 mg PO DAILY [facility] Last Admin: 01/12/17 09:41 Dose: Not Given Bisacodyl (Dulcolax) 20 mg PO BID [facility] Last Admin: 01/15/17 21:08 Dose: Not Given Clonazepam (Klonopin) 2 mg PO TID [facility] Last Admin: 01/16/17 11:19 Dose: Not Given Clonazepam (Klonopin) Confirm Administered Dose 2 mg .ROUTE .STK-MED ONE Stop: 01/16/17 11:14 Last Admin: 01/16/17 11:18 Dose: Not Given Dexamethasone (Dexamethasone) Confirm Administered Dose 4 mg .ROUTE .STK-MED ONE Stop: 01/11/17 07:21 Dexamethasone (Dexamethasone) Confirm Administered Dose 4 mg .ROUTE .STK-MED ONE Stop: 01/12/17 12:54 Enoxaparin Sodium (Lovenox) 40 mg SUBCUT DAILY [facility] Last Admin: 01/12/17 09:41 Dose: Not Given Factor VIIa (Recombinant) (Novoseven Rt) 2,000 mcg IVPUSH ONETIME ONE Stop: 01/12/17 09:16 Last Admin: 01/12/17 09:19 Dose: 2,000 mcg Factor VIIa (Recombinant) (Novoseven Rt) 2,000 mcg IVPUSH ONETIME ONE Stop: 01/12/17 10:01 Last Admin: 01/12/17 10:32 Dose: 2,000 mcg Factor VIIa (Recombinant) (Novoseven Rt) 2,000 mcg IVPUSH ONETIME ONE Stop: 01/12/17 14:16 Last Admin: 01/12/17 14:20 Dose: 1 mcg Fentanyl (Sublimaze) Confirm Administered Dose 500 mcg .ROUTE .STK-MED ONE Stop: 01/11/17 07:21 Fentanyl (Sublimaze) Confirm Administered Dose 250 mcg .ROUTE .STK-MED ONE Stop: 01/11/17 10:47 Fentanyl (Sublimaze) Confirm Administered Dose 250 mcg .ROUTE .STK-MED ONE Stop: 01/12/17 12:54 Furosemide (Lasix) 10 mg IV ONETIME ONE Stop: 01/12/17 15:31 Last Admin: 01/12/17 15:51 Dose: 10 mg Furosemide (Lasix) 20 mg IVPUSH ONETIME ONE Stop: 01/15/17 07:31 Last Admin: 01/15/17 08:39 Dose: 20 mg Furosemide (Lasix) 80 mg PO ONETIME ONE Stop: 01/16/17 12:16 Last Admin: 01/16/17 13:00 Dose: 80 mg Furosemide (Lasix) 80 mg PO DAILY [facility] Stop: 01/17/17 09:01 Glycopyrrolate () Confirm Administered Dose 1 mg .ROUTE .STK-MED ONE Stop: 01/11/17 07:21 Glycopyrrolate () Confirm Administered Dose 1 mg .ROUTE .STK-MED ONE Stop: 01/12/17 12:54 Hydromorphone HCl (Dilaudid Dishcloth Folder 15 Mg In Ns 30 Ml) 0 mg IV ASDIRECTED PRN; Protocol PRN Reason: Pain Last Admin: 01/11/17 12:12 Dose: 0.3 mg Hydromorphone HCl (Dilaudid Dishcloth Folder 15 Mg In Ns 30 Ml) 0 mg IV ASDIRECTED PRN; Protocol 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 Last Admin: 01/12/17 15:30 Dose: 15 mg Hydromorphone HCl (Dilaudid) 2 - 4 mg PO Q4H PRN PRN Reason: Pain Last Admin: 01/17/17 00:39 Dose: 2 mg Lactated Ringer's (Ringers, Lactated) 1,000 mls @ 0 mls/hr IV ASDIRECTED [facility] PRN Reason: KVO Last Admin: 01/11/17 06:19 Dose: 25 mls/hr Cefazolin Sodium 2 gm/ Sodium (Chloride) 50 mls @ 100 mls/hr IV ONETIME ONE Stop: 01/11/17 07:29 Last Admin: 01/11/17 07:25 Dose: 100 mls/hr Ketamine HCl 100 mg/ Sodium (Chloride) 100 mls @ 21 mls/hr IV ASDIRECTED [facility] Linezolid (Zyvox) Confirm Administered Dose 100 mls @ as directed .ROUTE .[facility] ONE Stop: 01/11/17 06:51 Lactated Ringer's (Ringers, Lactated) Confirm Administered Dose 1,000 mls @ as directed .ROUTE .[facility] ONE Stop: 01/11/17 09:07 Lactated Ringer's (Ringers, Lactated) Confirm Administered Dose 1,000 mls @ as directed .ROUTE .[facility] ONE Stop: 01/11/17 09:07 Dextrose/Lactated Ringer's (Dextrose 5%-Lactated Ringers) 1,000 mls @ 150 mls/ hr IV ASDIRECTED [facility] Last Admin: 01/13/17 04:10 Dose: 150 mls/hr Cefazolin Sodium 2 gm/ Sodium (Chloride) 50 mls @ 100 mls/hr IV Q8H [facility] Stop: 01/12/17 06:59 Last Admin: 01/12/17 05:57 Dose: 100 mls/hr Lactated Ringer's (Ringers, Lactated) 500 mls @ 500 mls/hr IV ONETIME ONE Stop: 01/11/17 21:14 Last Admin: 01/11/17 20:20 Dose: 500 mls/hr Lactated Ringer's (Ringers, Lactated) 500 mls @ 500 mls/hr IV ONETIME ONE Stop: 01/11/17 23:14 Last Admin: 01/11/17 22:36 Dose: 500 mls/hr Lactated Ringer's (Ringers, Lactated) 500 mls @ 500 mls/hr IV ASDIRECTED [facility] Lactated Ringer's (Ringers, Lactated) 500 mls @ 500 mls/hr IV ASDIRECTED [facility] Stop: 01/12/17 04:15 Last Admin: 01/12/17 03:15 Dose: 500 mls/hr Doxycycline Hyclate 100 mg/ (Sodium Chloride) 100 mls @ 100 mls/hr IV ONCALL ONE Stop: 01/12/17 13:29 Last Admin: 01/12/17 13:20 Dose: 100 mls/hr Linezolid (Zyvox) Confirm Administered Dose 100 mls @ as directed .ROUTE .STK- MED ONE Stop: 01/12/17 13:40 Lactated Ringer's (Ringers, Lactated) Confirm Administered Dose 1,000 mls @ as directed .ROUTE .STK-MED ONE Stop: 01/12/17 13:53 Dextrose/Lactated Ringer's (Dextrose 5%-Lactated Ringers) 1,000 mls @ 80 mls/ hr IV ASDIRECTED [facility] Last Admin: 01/15/17 00:17 Dose: 80 mls/hr Magnesium Sulfate 2 gm/ Premix 50 mls @ 25 mls/hr IV Q6H [facility] Stop: 01/17/17 03:59 Last Admin: 01/16/17 07:27 Dose: 25 mls/hr Sodium Chloride (Normal Saline) 500 mls @ 25 mls/hr IV .BOLUS ONE Stop: 01/16/17 22:09 Last Admin: 01/16/17 02:00 Dose: 25 mls/hr Ketamine HCl (Ketalar) 35 mg IV ASDIRECTED [facility] Linezolid (Zyvox) 200 mg IRR .STK-MED ONE Stop: 01/11/17 11:01 Last Admin: 01/11/17 11:00 Dose: 200 mg Linezolid (Zyvox) 200 mg IRR .STK-MED ONE Stop: 01/12/17 14:01 Last Admin: 01/12/17 14:00 Dose: 200 mg Lisinopril (Prinivil) 20 mg PO DAILY [facility] Last Admin: 01/15/17 08:32 Dose: 20 mg Magnesium Hydroxide (Milk Of Magnesia) 30 ml PO BID [facility] Meropenem (Merrem) Confirm Administered Dose 500 mg .ROUTE .STK-MED ONE Stop: 01/12/17 13:40 Last Admin: 01/12/17 15:07 Dose: 500 mg Naloxone HCl (Narcan) 0.1 mg IVPUSH Q5M PRN PRN Reason: Respiratory Distress Naloxone HCl (Narcan) 0.1 mg IV ASDIRECTED PRN PRN Reason: decreased respiratory rate Neostigmine Methylsulfate (Neostigmine) Confirm Administered Dose 5 mg .ROUTE .STK-MED ONE Stop: 01/11/17 07:21 Neostigmine Methylsulfate (Neostigmine) Confirm Administered Dose 5 mg .ROUTE .STK-MED ONE Stop: 01/12/17 12:54 Non-Formulary Medication (Total Parenteral Nutrition, Central) 1,000 ml .XX .Continue Order [facility] Ondansetron HCl (Zofran) Confirm Administered Dose 4 mg .ROUTE .STK-MED ONE Stop: 01/11/17 07:21 Ondansetron HCl (Zofran) Confirm Administered Dose 4 mg .ROUTE .STK-MED ONE Stop: 01/12/17 12:54 Oxycodone/Acetaminophen (Percocet 325-5 Mg) 1 - 2 tab PO Q4H PRN PRN Reason: Pain Last Admin: 01/12/17 07:53 Dose: 1 tab Povidone Iodine (Betadine 10% Soln) Confirm Administered Dose 1 ml .ROUTE .STK- MED ONE Stop: 01/11/17 09:03 Propofol (Diprivan 20 Ml) Confirm Administered Dose 200 mg .ROUTE .STK-MED ONE Stop: 01/11/17 07:21 Propofol (Diprivan 20 Ml) Confirm Administered Dose 600 mg .ROUTE .STK-MED ONE Stop: 01/11/17 08:32 Propofol (Diprivan 20 Ml) Confirm Administered Dose 600 mg .ROUTE .STK-MED ONE Stop: 01/11/17 08:32 Propofol (Diprivan 20 Ml) Confirm Administered Dose 600 mg .ROUTE .STK-MED ONE Stop: 01/11/17 09:30 Propofol (Diprivan 20 Ml) Confirm Administered Dose 200 mg .ROUTE .STK-MED ONE Stop: 01/12/17 12:54 Rocuronium [place] (Zemuron) Confirm Administered Dose 50 mg .ROUTE .STK-MED ONE Stop: 01/11/17 07:21 Rocuronium [place] (Zemuron) Confirm Administered Dose 50 mg .ROUTE .STK-MED ONE Stop: 01/11/17 08:02 Rocuronium [place] (Zemuron) Confirm Administered Dose 50 mg .ROUTE .STK-MED ONE Stop: 01/12/17 12:54 Sodium Chloride (Saline Flush) 10 ml IV ASDIRECTED PRN PRN Reason: MANAGER NEWS Succinylcholine Chloride (Succinylcholine In Ns Pf) Confirm Administered Dose 200 mg .ROUTE .STK-MED ONE Stop: 01/11/17 07:21 Succinylcholine Chloride (Succinylcholine In Ns Pf) Confirm Administered Dose 200 mg .ROUTE .STK-MED ONE Stop: 01/12/17 12:54 Thrombin (Thrombin-Jmi) Confirm Administered Dose 25,000 unit .ROUTE .STK-MED ONE Stop: 01/11/17 06:51 Last Admin: 01/11/17 11:00 Dose: 10,000 unit Thrombin (Thrombin-Jmi) Confirm Administered Dose 5,000 unit .ROUTE .STK-MED ONE Stop: 01/11/17 06:52 Thrombin (Thrombin-Jmi) Confirm Administered Dose 5,000 unit .ROUTE .STK-MED ONE Stop: 01/11/17 07:55 - Exam General: alert, oriented Extremities: Normal Inspection, Normal Range of Motion Skin: warm, dry, intact Wound/Incisions: healing well, dressing dry and intact - Problem List Review Problem List Initiated/Reviewed/Updated: Yes - Plan Plan:: Kashmir is a pleasant 61-year-old male who is status post postop day 5 of an anterior fusion of L5-S1. Patient has no concerns at this time. He notes that he is doing well. He has been ambulating without any difficulties. His pain is under control. The plan is for him to have a short stay at either a rehab facility or a [facility]. He will be monitored till Tuesday for discharge.
--- NOTE | 2017-01-17 09:18 | PCM.PN ---
- General Info Date of Service: 01/15/17 Functional Status: Reports: Pain Controlled, Tolerating Diet, Ambulating, Urinating - Patient Data Vitals - most recent: Last Vital Signs Temp 35.6 C 01/17/17 08:39 Pulse 103 H 01/17/17 08:39 Resp 14 01/17/17 08:39 BP 124/76 01/17/17 08:39 Pulse Ox 97 01/17/17 08:39 Weight - most recent: 283 lb 6.4 oz I&O - last 24 hours: Intake & Output 01/16/17 01/17/17 01/17/17 22:59 06:59 14:59 Intake Total 490 500 Output Total 1000 783 420 Balance -178 -283 -420 Med Orders - Current: Current Medications Acetaminophen (Tylenol Extra Strength) 1,000 mg PO TID [facility] Last Admin: 01/16/17 21:00 Dose: 1,000 mg Albuterol/Ipratropium (Duoneb 3.0-0.5 Mg/3 Ml) 3 ml INH ASDIRECTED PRN PRN Reason: Shortness of Breath Last Admin: 01/15/17 02:22 Dose: 3 ml Allopurinol (Zyloprim) 200 mg PO BID [facility] Last Admin: 01/16/17 21:01 Dose: 200 mg Aripiprazole (Abilify) 15 mg PO DAILY [facility] Last Admin: 01/16/17 08:13 Dose: 15 mg Clonazepam (Klonopin) 1 mg PO TID [facility] Last Admin: 01/16/17 21:07 Dose: 1 mg Divalproex Sodium (Depakote Er) 500 mg PO TID [facility] Last Admin: 01/16/17 20:57 Dose: 500 mg Docusate Sodium (Colace) 100 mg PO BID [facility] Last Admin: 01/16/17 20:56 Dose: 100 mg Fluoxetine HCl (Prozac) 40 mg PO DAILY [facility] Last Admin: 01/16/17 08:14 Dose: 40 mg Nitroglycerin (Nitrostat) 0.4 mg SL ASDIRECTED PRN PRN Reason: Chest Pain Ondansetron HCl (Zofran) 4 mg IVPUSH Q4H PRN PRN Reason: Nausea Oxybutynin Chloride (Oxybutynin) 5 mg PO BID [facility] Last Admin: 07/23/17 20:57 Dose: 5 mg Pantoprazole Sodium (Protonix) 40 mg PO ACBREAKFAST [facility] Last Admin: 01/17/17 07:33 Dose: 40 mg Clozaril 100mg (Ptom ()) 0 each PO BEDTIME [facility] Last Admin: 01/16/17 20:59 Dose: 1 each Clozaril 100mg (Ptom ()) 0 each PO DAILY@0800 [facility] Last Admin: 01/16/17 11:20 Dose: Not Given Clozaril 100mg (Ptom ()) 0 each PO DAILY@1200 [facility] Last Admin: 01/16/17 13:00 Dose: 1 each Discontinued Medications Acetaminophen (Tylenol) 650 mg PO Q6H [facility] Last Admin: 01/16/17 08:13 Dose: 650 mg Albuterol/Ipratropium (Duoneb 3.0-0.5 Mg/3 Ml) 3 ml INH QIDRT [facility] Last Admin: 01/15/17 07:14 Dose: 3 ml Aspirin (Halfprin) 81 mg PO DAILY [facility] Last Admin: 01/12/17 09:41 Dose: Not Given Bisacodyl (Dulcolax) 20 mg PO BID [facility] Last Admin: 01/15/17 21:08 Dose: Not Given Clonazepam (Klonopin) 2 mg PO TID [facility] Last Admin: 01/16/17 11:19 Dose: Not Given Clonazepam (Klonopin) Confirm Administered Dose 2 mg .ROUTE .STK-MED ONE Stop: 01/16/17 11:14 Last Admin: 01/16/17 11:18 Dose: Not Given Dexamethasone (Dexamethasone) Confirm Administered Dose 4 mg .ROUTE .STK-MED ONE Stop: 01/11/17 07:21 Dexamethasone (Dexamethasone) Confirm Administered Dose 4 mg .ROUTE .STK-MED ONE Stop: 01/12/17 12:54 Enoxaparin Sodium (Lovenox) 40 mg SUBCUT DAILY [facility] Last Admin: 01/12/17 09:41 Dose: Not Given Factor VIIa (Recombinant) (Novoseven Rt) 2,000 mcg IVPUSH ONETIME ONE Stop: 01/12/17 09:16 Last Admin: 01/12/17 09:19 Dose: 2,000 mcg Factor VIIa (Recombinant) (Novoseven Rt) 2,000 mcg IVPUSH ONETIME ONE Stop: 01/12/17 10:01 Last Admin: 01/12/17 10:32 Dose: 2,000 mcg Factor VIIa (Recombinant) (Novoseven Rt) 2,000 mcg IVPUSH ONETIME ONE Stop: 01/12/17 14:16 Last Admin: 01/12/17 14:20 Dose: 1 mcg Fentanyl (Sublimaze) Confirm Administered Dose 500 mcg .ROUTE .STK-MED ONE Stop: 01/11/17 07:21 Fentanyl (Sublimaze) Confirm Administered Dose 250 mcg .ROUTE .STK-MED ONE Stop: 01/11/17 10:47 Fentanyl (Sublimaze) Confirm Administered Dose 250 mcg .ROUTE .STK-MED ONE Stop: 01/12/17 12:54 Furosemide (Lasix) 10 mg IV ONETIME ONE Stop: 01/12/17 15:31 Last Admin: 01/12/17 15:51 Dose: 10 mg Furosemide (Lasix) 20 mg IVPUSH ONETIME ONE Stop: 01/15/17 07:31 Last Admin: 01/15/17 08:39 Dose: 20 mg Furosemide (Lasix) 80 mg PO ONETIME ONE Stop: 01/16/17 12:16 Last Admin: 01/16/17 13:00 Dose: 80 mg Furosemide (Lasix) 80 mg PO DAILY [facility] Stop: 01/17/17 09:01 Glycopyrrolate () Confirm Administered Dose 1 mg .ROUTE .STK-MED ONE Stop: 01/11/17 07:21 Glycopyrrolate () Confirm Administered Dose 1 mg .ROUTE .STK-MED ONE Stop: 01/12/17 12:54 Hydromorphone HCl (Dilaudid Systems Test Analyst 15 Mg In Ns 30 Ml) 0 mg IV ASDIRECTED PRN; Protocol PRN Reason: Pain Last Admin: 01/11/17 12:12 Dose: 0.3 mg Hydromorphone HCl (Dilaudid Systems Test Analyst 15 Mg In Ns 30 Ml) 0 mg IV ASDIRECTED PRN; 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 Last Admin: 01/12/17 15:30 Dose: 15 mg Hydromorphone HCl (Dilaudid) 2 - 4 mg PO Q4H PRN PRN Reason: Pain Last Admin: 01/17/17 00:39 Dose: 2 mg Lactated Ringer's (Ringers, Lactated) 1,000 mls @ 0 mls/hr IV ASDIRECTED [facility] PRN Reason: KVO Last Admin: 01/11/17 06:19 Dose: 25 mls/hr Cefazolin Sodium 2 gm/ Sodium (Chloride) 50 mls @ 100 mls/hr IV ONETIME ONE Stop: 01/11/17 07:29 Last Admin: 01/11/17 07:25 Dose: 100 mls/hr Ketamine HCl 100 mg/ Sodium (Chloride) 100 mls @ 21 mls/hr IV ASDIRECTED [facility] Linezolid (Zyvox) Confirm Administered Dose 100 mls @ as directed .ROUTE .[facility] ONE Stop: 01/11/17 06:51 Lactated Ringer's (Ringers, Lactated) Confirm Administered Dose 1,000 mls @ as directed .ROUTE .STK-MED ONE Stop: 01/11/17 09:07 Lactated Ringer's (Ringers, Lactated) Confirm Administered Dose 1,000 mls @ as directed .ROUTE .[facility] ONE Stop: 01/11/17 09:07 Dextrose/Lactated Ringer's (Dextrose 5%-Lactated Ringers) 1,000 mls @ 150 mls/ hr IV ASDIRECTED [facility] Last Admin: 01/13/17 04:10 Dose: 150 mls/hr Cefazolin Sodium 2 gm/ Sodium (Chloride) 50 mls @ 100 mls/hr IV Q8H [facility] Stop: 01/12/17 06:59 Last Admin: 01/12/17 05:57 Dose: 100 mls/hr Lactated Ringer's (Ringers, Lactated) 500 mls @ 500 mls/hr IV ONETIME ONE Stop: 01/11/17 21:14 Last Admin: 01/11/17 20:20 Dose: 500 mls/hr Lactated Ringer's (Ringers, Lactated) 500 mls @ 500 mls/hr IV ONETIME ONE Stop: 01/11/17 23:14 Last Admin: 01/11/17 22:36 Dose: 500 mls/hr Lactated Ringer's (Ringers, Lactated) 500 mls @ 500 mls/hr IV ASDIRECTED [facility] Lactated Ringer's (Ringers, Lactated) 500 mls @ 500 mls/hr IV ASDIRECTED [facility] Stop: 01/12/17 04:15 Last Admin: 01/12/17 03:15 Dose: 500 mls/hr Doxycycline Hyclate 100 mg/ (Sodium Chloride) 100 mls @ 100 mls/hr IV ONCALL ONE Stop: 01/12/17 13:29 Last Admin: 01/12/17 13:20 Dose: 100 mls/hr Linezolid (Zyvox) Confirm Administered Dose 100 mls @ as directed .ROUTE .STK- MED ONE Stop: 01/12/17 13:40 Lactated Ringer's (Ringers, Lactated) Confirm Administered Dose 1,000 mls @ as directed .ROUTE .STK-MED ONE Stop: 01/12/17 13:53 Dextrose/Lactated Ringer's (Dextrose 5%-Lactated Ringers) 1,000 mls @ 80 mls/ hr IV ASDIRECTED [facility] Last Admin: 01/15/17 00:17 Dose: 80 mls/hr Magnesium Sulfate 2 gm/ Premix 50 mls @ 25 mls/hr IV Q6H [facility] Stop: 01/17/17 03:59 Last Admin: 01/16/17 07:27 Dose: 25 mls/hr Sodium Chloride (Normal Saline) 500 mls @ 25 mls/hr IV .BOLUS ONE Stop: 01/16/17 22:09 Last Admin: 01/16/17 02:00 Dose: 25 mls/hr Ketamine HCl (Ketalar) 35 mg IV ASDIRECTED [facility] Linezolid (Zyvox) 200 mg IRR .STK-MED ONE Stop: 01/11/17 11:01 Last Admin: 01/11/17 11:00 Dose: 200 mg Linezolid (Zyvox) 200 mg IRR .STK-MED ONE Stop: 01/12/17 14:01 Last Admin: 01/12/17 14:00 Dose: 200 mg Lisinopril (Prinivil) 20 mg PO DAILY [facility] Last Admin: 01/15/17 08:32 Dose: 20 mg Magnesium Hydroxide (Milk Of Magnesia) 30 ml PO BID [facility] Meropenem (Merrem) Confirm Administered Dose 500 mg .ROUTE .STK-MED ONE Stop: 01/12/17 13:40 Last Admin: 01/12/17 15:07 Dose: 500 mg Naloxone HCl (Narcan) 0.1 mg IVPUSH Q5M PRN PRN Reason: Respiratory Distress Naloxone HCl (Narcan) 0.1 mg IV ASDIRECTED PRN PRN Reason: decreased respiratory rate Neostigmine Methylsulfate (Neostigmine) Confirm Administered Dose 5 mg .ROUTE .STK-MED ONE Stop: 01/11/17 07:21 Neostigmine Methylsulfate (Neostigmine) Confirm Administered Dose 5 mg .ROUTE .STK-MED ONE Stop: 01/12/17 12:54 Non-Formulary Medication (Total Parenteral Nutrition, Central) 1,000 ml .XX .Continue Order [facility] Ondansetron HCl (Zofran) Confirm Administered Dose 4 mg .ROUTE .STK-MED ONE Stop: 01/11/17 07:21 Ondansetron HCl (Zofran) Confirm Administered Dose 4 mg .ROUTE .STK-MED ONE Stop: 01/12/17 12:54 Oxycodone/Acetaminophen (Percocet 325-5 Mg) 1 - 2 tab PO Q4H PRN PRN Reason: Pain Last Admin: 01/12/17 07:53 Dose: 1 tab Povidone Iodine (Betadine 10% Soln) Confirm Administered Dose 1 ml .ROUTE .STK- MED ONE Stop: 01/11/17 09:03 Propofol (Diprivan 20 Ml) Confirm Administered Dose 200 mg .ROUTE .STK-MED ONE Stop: 01/11/17 07:21 Propofol (Diprivan 20 Ml) Confirm Administered Dose 600 mg .ROUTE .STK-MED ONE Stop: 01/11/17 08:32 Propofol (Diprivan 20 Ml) Confirm Administered Dose 600 mg .ROUTE .STK-MED ONE Stop: 01/11/17 08:32 Propofol (Diprivan 20 Ml) Confirm Administered Dose 600 mg .ROUTE .STK-MED ONE Stop: 01/11/17 09:30 Propofol (Diprivan 20 Ml) Confirm Administered Dose 200 mg .ROUTE .STK-MED ONE Stop: 01/12/17 12:54 Rocuronium [place] (Zemuron) Confirm Administered Dose 50 mg .ROUTE .STK-MED ONE Stop: 01/11/17 07:21 Rocuronium [place] (Zemuron) Confirm Administered Dose 50 mg .ROUTE .STK-MED ONE Stop: 01/11/17 08:02 Rocuronium [place] (Zemuron) Confirm Administered Dose 50 mg .ROUTE .STK-MED ONE Stop: 01/12/17 12:54 Sodium Chloride (Saline Flush) 10 ml IV ASDIRECTED PRN PRN Reason: OFFICE CLERK Succinylcholine Chloride (Succinylcholine In Ns Pf) Confirm Administered Dose 200 mg .ROUTE .STK-MED ONE Stop: 01/11/17 07:21 Succinylcholine Chloride (Succinylcholine In Ns Pf) Confirm Administered Dose 200 mg .ROUTE .STK-MED ONE Stop: 01/12/17 12:54 Thrombin (Thrombin-Jmi) Confirm Administered Dose 25,000 unit .ROUTE .STK-MED ONE Stop: 01/11/17 06:51 Last Admin: 01/11/17 11:00 Dose: 10,000 unit Thrombin (Thrombin-Jmi) Confirm Administered Dose 5,000 unit .ROUTE .STK-MED ONE Stop: 01/11/17 06:52 Thrombin (Thrombin-Jmi) Confirm Administered Dose 5,000 unit .ROUTE .STK-MED ONE Stop: 01/11/17 07:55 - Exam General: alert, oriented Extremities: Normal Inspection Skin: warm, dry, intact Wound/Incisions: healing well, dressing dry and intact Neurological: no new focal deficit, normal gait, strength equal bilateral, reflexes equal bilateral, sensation intact - Problem List Review Problem List Initiated/Reviewed/Updated: Yes - Plan Plan:: [place] is a pleasant 61-year-old male who is status post postop day 4 of an anterior fusion of L5-S1. Patient has no concerns at this time. He notes that he is doing well. He has been ambulating without any difficulties. His pain is under control. Plan is for him to stay till Tuesday. We will continue with PT/OT and pain management at this time.
[2017-01-17] MEDS: ARIPiprazole 10 MG Tab PO SCH (10:31)
[2017-01-17] MEDS: Divalproex Sodium 250 MG Tab.ER PO SCH ×3 (10:31→21:16)
[2017-01-17] MEDS: Oxybutynin 5 MG Tab PO SCH ×2 (10:33→21:16)
[2017-01-17] MEDS: Docusate Sodium 100 MG Cap PO SCH ×2 (10:33→21:17)
[2017-01-17] MEDS: FLUoxetine 20 MG Cap PO SCH (10:33)
[2017-01-17] MEDS: Acetaminophen 500 MG Tab PO SCH ×3 (10:34→21:16)
[2017-01-17] MEDS: Allopurinol 100 MG Tab PO SCH ×2 (10:34→21:16)
[2017-01-17] MEDS: CLOZARIL 100 MG PO SCH ×3 (10:36→21:15)
[2017-01-17] MEDS: ClonazePAM 1 MG Tab PO SCH ×3 (11:08→21:21)
[2017-01-17] MEDS ORDERED: Furosemide 40 MG/4 ML VIAL IVPUSH ONE (13:03)
--- NOTE | 2017-01-17 13:06 | PCM.CONSN ---
- General Info Date of Service: 01/17/17 - Review of Systems General: Reports: Weakness. Denies: Fever, Chills Cardiovascular: Reports: Edema. Denies: Chest Pain, Dyspnea on Exertion Gastrointestinal: Reports: Abdominal Pain. Denies: Constipation, Difficulty Swallowing, Nausea, Vomiting Systems Review Comment:: Mr. Sheridan has been stable since yesterday, good diuresis with IV furosemide. Continues to have fairly extensive peripheral and scrotal edema. Vital signs have been stable and he has remained afebrile. - Patient Data Vitals - most recent: Last Vital Signs Temp 96.8 F 01/17/17 11:09 Pulse 102 H 01/17/17 11:09 Resp 19 01/17/17 11:09 BP 151/92 H 01/17/17 11:09 Pulse Ox 97 01/17/17 11:09 Weight - most recent: 283 lb 6.4 oz I&O - last 24 hours: Intake & Output 01/16/17 01/17/17 01/17/17 22:59 06:59 14:59 Intake Total 490 500 Output Total 7665 433 8517 Balance -510 -[phone] -[phone] Med Orders - Current: Current Medications Acetaminophen (Tylenol Extra Strength) 1,000 mg PO TID [facility] Last Admin: 01/17/17 10:34 Dose: 1,000 mg Albuterol/Ipratropium (Duoneb 3.0-0.5 Mg/3 Ml) 3 ml INH ASDIRECTED PRN PRN Reason: Shortness of Breath Last Admin: 01/15/17 02:22 Dose: 3 ml Allopurinol (Zyloprim) 200 mg PO BID [facility] Last Admin: 01/17/17 10:34 Dose: 200 mg Aripiprazole (Abilify) 15 mg PO DAILY [facility] Last Admin: 01/17/17 10:31 Dose: 15 mg Clonazepam (Klonopin) 1 mg PO TID [facility] Last Admin: 01/17/17 11:08 Dose: Not Given Divalproex Sodium (Depakote Er) 500 mg PO TID [facility] Last Admin: 01/17/17 10:31 Dose: 500 mg Docusate Sodium (Colace) 100 mg PO BID [facility] Last Admin: 01/17/17 10:33 Dose: 100 mg Furosemide (Lasix) 40 mg IVPUSH NOW ONE Stop: 01/17/17 13:04 Furosemide (Lasix) 40 mg IVPUSH NOW ONE Stop: 01/18/17 07:01 Nitroglycerin (Nitrostat) 0.4 mg SL ASDIRECTED PRN PRN Reason: Chest Pain Ondansetron HCl (Zofran) 4 mg IVPUSH Q4H PRN PRN Reason: Nausea Oxybutynin Chloride (Oxybutynin) 5 mg PO BID [facility] Last Admin: 01/17/17 10:33 Dose: 5 mg Pantoprazole Sodium (Protonix) 40 mg PO ACBREAKFAST [facility] Last Admin: 01/17/17 07:33 Dose: 40 mg Clozaril 100mg (Ptom ()) 0 each PO BEDTIME [facility] Last Admin: 01/16/17 20:59 Dose: 1 each Clozaril 100mg (Ptom ()) 0 each PO DAILY@0800 [facility] Last Admin: 01/17/17 10:36 Dose: 150 each Clozaril 100mg (Ptom ()) 0 each PO DAILY@1200 [facility] Last Admin: 01/16/17 13:00 Dose: 1 each Discontinued Medications Acetaminophen (Tylenol) 650 mg PO Q6H [facility] Last Admin: 01/16/17 08:13 Dose: 650 mg Albuterol/Ipratropium (Duoneb 3.0-0.5 Mg/3 Ml) 3 ml INH QIDRT [facility] Last Admin: 01/15/17 07:14 Dose: 3 ml Aspirin (Halfprin) 81 mg PO DAILY [facility] Last Admin: 01/12/17 09:41 Dose: Not Given Bisacodyl (Dulcolax) 20 mg PO BID [facility] Last Admin: 01/15/17 21:08 Dose: Not Given Clonazepam (Klonopin) 2 mg PO TID [facility] Last Admin: 01/16/17 11:19 Dose: Not Given Clonazepam (Klonopin) Confirm Administered Dose 2 mg .ROUTE .STK-MED ONE Stop: 01/16/17 11:14 Last Admin: 01/16/17 11:18 Dose: Not Given Dexamethasone (Dexamethasone) Confirm Administered Dose 4 mg .ROUTE .STK-MED ONE Stop: 01/11/17 07:21 Dexamethasone (Dexamethasone) Confirm Administered Dose 4 mg .ROUTE .STK-MED ONE Stop: 01/12/17 12:54 Enoxaparin Sodium (Lovenox) 40 mg SUBCUT DAILY [facility] Last Admin: 01/12/17 09:41 Dose: Not Given Factor VIIa (Recombinant) (Novoseven Rt) 2,000 mcg IVPUSH ONETIME ONE Stop: 01/12/17 09:16 Last Admin: 01/12/17 09:19 Dose: 2,000 mcg Factor VIIa (Recombinant) (Novoseven Rt) 2,000 mcg IVPUSH ONETIME ONE Stop: 01/12/17 10:01 Last Admin: 01/12/17 10:32 Dose: 2,000 mcg Factor VIIa (Recombinant) (Novoseven Rt) 2,000 mcg IVPUSH ONETIME ONE Stop: 01/12/17 14:16 Last Admin: 01/12/17 14:20 Dose: 1 mcg Fentanyl (Sublimaze) Confirm Administered Dose 500 mcg .ROUTE .STK-MED ONE Stop: 01/11/17 07:21 Fentanyl (Sublimaze) Confirm Administered Dose 250 mcg .ROUTE .STK-MED ONE Stop: 01/11/17 10:47 Fentanyl (Sublimaze) Confirm Administered Dose 250 mcg .ROUTE .STK-MED ONE Stop: 01/12/17 12:54 Fluoxetine HCl (Prozac) 40 mg PO DAILY [facility] Last Admin: 01/17/17 10:33 Dose: 40 mg Furosemide (Lasix) 10 mg IV ONETIME ONE Stop: 01/12/17 15:31 Last Admin: 01/12/17 15:51 Dose: 10 mg Furosemide (Lasix) 20 mg IVPUSH ONETIME ONE Stop: 01/15/17 07:31 Last Admin: 01/15/17 08:39 Dose: 20 mg Furosemide (Lasix) 80 mg PO ONETIME ONE Stop: 01/16/17 12:16 Last Admin: 01/16/17 13:00 Dose: 80 mg Furosemide (Lasix) 80 mg PO DAILY [facility] Stop: 01/17/17 09:01 Last Admin: 01/17/17 10:32 Dose: 80 mg Glycopyrrolate () Confirm Administered Dose 1 mg .ROUTE .STK-MED ONE Stop: 01/11/17 07:21 Glycopyrrolate () Confirm Administered Dose 1 mg .ROUTE .STK-MED ONE Stop: 01/12/17 12:54 Hydromorphone HCl (Dilaudid Staff Software Engineer 15 Mg In Ns 30 Ml) 0 mg IV ASDIRECTED PRN; Protocol PRN Reason: Pain Last Admin: 01/11/17 12:12 Dose: 0.3 mg Hydromorphone HCl (Dilaudid Staff Software Engineer 15 Mg In Ns 30 Ml) 0 mg IV ASDIRECTED PRN; Protocol PRN Reason: ADULT EDUCATION MANAGER PAIN CONTROL Last Admin: 01/12/17 15:30 Dose: 15 mg Hydromorphone HCl (Dilaudid) 2 - 4 mg PO Q4H PRN PRN Reason: Pain Last Admin: 01/17/17 00:39 Dose: 2 mg Lactated Ringer's (Ringers, Lactated) 1,000 mls @ 0 mls/hr IV ASDIRECTED MOHSEN PRN Reason: KVO Last Admin: 01/11/17 06:19 Dose: 25 mls/hr Cefazolin Sodium 2 gm/ Sodium (Chloride) 50 mls @ 100 mls/hr IV ONETIME ONE Stop: 01/11/17 07:29 Last Admin: 01/11/17 07:25 Dose: 100 mls/hr Ketamine HCl 100 mg/ Sodium (Chloride) 100 mls @ 21 mls/hr IV ASDIRECTED [facility] Linezolid (Zyvox) Confirm Administered Dose 100 mls @ as directed .ROUTE .[facility] ONE Stop: 01/11/17 06:51 Lactated Ringer's (Ringers, Lactated) Confirm Administered Dose 1,000 mls @ as directed .ROUTE .STK-MED ONE Stop: 01/11/17 09:07 Lactated Ringer's (Ringers, Lactated) Confirm Administered Dose 1,000 mls @ as directed .ROUTE .STK-MED ONE Stop: 01/11/17 09:07 Dextrose/Lactated Ringer's (Dextrose 5%-Lactated Ringers) 1,000 mls @ 150 mls/ hr IV ASDIRECTED MOHSEN Last Admin: 01/13/17 04:10 Dose: 150 mls/hr Cefazolin Sodium 2 gm/ Sodium (Chloride) 50 mls @ 100 mls/hr IV Q8H [facility] Stop: 01/12/17 06:59 Last Admin: 01/12/17 05:57 Dose: 100 mls/hr Lactated Ringer's (Ringers, Lactated) 500 mls @ 500 mls/hr IV ONETIME ONE Stop: 01/11/17 21:14 Last Admin: 01/11/17 20:20 Dose: 500 mls/hr Lactated Ringer's (Ringers, Lactated) 500 mls @ 500 mls/hr IV ONETIME ONE Stop: 01/11/17 23:14 Last Admin: 01/11/17 22:36 Dose: 500 mls/hr Lactated Ringer's (Ringers, Lactated) 500 mls @ 500 mls/hr IV ASDIRECTED [facility] Lactated Ringer's (Ringers, Lactated) 500 mls @ 500 mls/hr IV ASDIRECTED [facility] Stop: 01/12/17 04:15 Last Admin: 01/12/17 03:15 Dose: 500 mls/hr Doxycycline Hyclate 100 mg/ (Sodium Chloride) 100 mls @ 100 mls/hr IV ONCALL ONE Stop: 01/12/17 13:29 Last Admin: 01/12/17 13:20 Dose: 100 mls/hr Linezolid (Zyvox) Confirm Administered Dose 100 mls @ as directed .ROUTE .STK- MED ONE Stop: 01/12/17 13:40 Lactated Ringer's (Ringers, Lactated) Confirm Administered Dose 1,000 mls @ as directed .ROUTE .STK-MED ONE Stop: 01/12/17 13:53 Dextrose/Lactated Ringer's (Dextrose 5%-Lactated Ringers) 1,000 mls @ 80 mls/ hr IV ASDIRECTED [facility] Last Admin: 01/15/17 00:17 Dose: 80 mls/hr Magnesium Sulfate 2 gm/ Premix 50 mls @ 25 mls/hr IV Q6H [facility] Stop: 01/17/17 03:59 Last Admin: 01/16/17 07:27 Dose: 25 mls/hr Sodium Chloride (Normal Saline) 500 mls @ 25 mls/hr IV .BOLUS ONE Stop: 01/16/17 22:09 Last Admin: 01/16/17 02:00 Dose: 25 mls/hr Ketamine HCl (Ketalar) 35 mg IV ASDIRECTED [facility] Linezolid (Zyvox) 200 mg IRR .STK-MED ONE Stop: 01/11/17 11:01 Last Admin: 01/11/17 11:00 Dose: 200 mg Linezolid (Zyvox) 200 mg IRR .STK-MED ONE Stop: 01/12/17 14:01 Last Admin: 01/12/17 14:00 Dose: 200 mg Lisinopril (Prinivil) 20 mg PO DAILY [facility] Last Admin: 01/15/17 08:32 Dose: 20 mg Magnesium Hydroxide (Milk Of Magnesia) 30 ml PO BID [facility] Meropenem (Merrem) Confirm Administered Dose 500 mg .ROUTE .STK-MED ONE Stop: 01/12/17 13:40 Last Admin: 01/12/17 15:07 Dose: 500 mg Naloxone HCl (Narcan) 0.1 mg IVPUSH Q5M PRN PRN Reason: Respiratory Distress Naloxone HCl (Narcan) 0.1 mg IV ASDIRECTED PRN PRN Reason: decreased respiratory rate Neostigmine Methylsulfate (Neostigmine) Confirm Administered Dose 5 mg .ROUTE .STK-MED ONE Stop: 01/11/17 07:21 Neostigmine Methylsulfate (Neostigmine) Confirm Administered Dose 5 mg .ROUTE .STK-MED ONE Stop: 01/12/17 12:54 Non-Formulary Medication (Total Parenteral Nutrition, Central) 1,000 ml .XX .Continue Order [facility] Ondansetron HCl (Zofran) Confirm Administered Dose 4 mg .ROUTE .STK-MED ONE Stop: 01/11/17 07:21 Ondansetron HCl (Zofran) Confirm Administered Dose 4 mg .ROUTE .STK-MED ONE Stop: 01/12/17 12:54 Oxycodone/Acetaminophen (Percocet 325-5 Mg) 1 - 2 tab PO Q4H PRN PRN Reason: Pain Last Admin: 01/12/17 07:53 Dose: 1 tab Povidone Iodine (Betadine 10% Soln) Confirm Administered Dose 1 ml .ROUTE .STK- MED ONE Stop: 01/11/17 09:03 Propofol (Diprivan 20 Ml) Confirm Administered Dose 200 mg .ROUTE .STK-MED ONE Stop: 01/11/17 07:21 Propofol (Diprivan 20 Ml) Confirm Administered Dose 600 mg .ROUTE .STK-MED ONE Stop: 01/11/17 08:32 Propofol (Diprivan 20 Ml) Confirm Administered Dose 600 mg .ROUTE .STK-MED ONE Stop: 01/11/17 08:32 Propofol (Diprivan 20 Ml) Confirm Administered Dose 600 mg .ROUTE .STK-MED ONE Stop: 01/11/17 09:30 Propofol (Diprivan 20 Ml) Confirm Administered Dose 200 mg .ROUTE .STK-MED ONE Stop: 01/12/17 12:54 Rocuronium [place] (Zemuron) Confirm Administered Dose 50 mg .ROUTE .STK-MED ONE Stop: 01/11/17 07:21 Rocuronium [place] (Zemuron) Confirm Administered Dose 50 mg .ROUTE .STK-MED ONE Stop: 01/11/17 08:02 Rocuronium [place] (Zemuron) Confirm Administered Dose 50 mg .ROUTE .STK-MED ONE Stop: 01/12/17 12:54 Sodium Chloride (Saline Flush) 10 ml IV ASDIRECTED PRN PRN Reason: MANAGER NC Succinylcholine Chloride (Succinylcholine In Ns Pf) Confirm Administered Dose 200 mg .ROUTE .STK-MED ONE Stop: 01/11/17 07:21 Succinylcholine Chloride (Succinylcholine In Ns Pf) Confirm Administered Dose 200 mg .ROUTE .ST-MED ONE Stop: 01/12/17 12:54 Thrombin (Thrombin-Jmi) Confirm Administered Dose 25,000 unit .ROUTE .K-MED ONE Stop: 01/11/17 06:51 Last Admin: 01/11/17 11:00 Dose: 10,000 unit Thrombin (Thrombin-Jmi) Confirm Administered Dose 5,000 unit .ROUTE .STK-MED ONE Stop: 01/11/17 06:52 Thrombin (Thrombin-Jmi) Confirm Administered Dose 5,000 unit .ROUTE .ST-MED ONE Stop: 01/11/17 07:55 - Exam Quality Assessment: DVT prophylaxis General: alert, oriented, cooperative Lungs: Clear to Auscultation, Normal Respiratory Effort Cardiovascular: Regular Rate, Regular Rhythm, No Murmurs GI/Abdominal Exam: Normal Bowel Sounds, Soft, No Organomegaly, No Distention, No Abnormal Bruit, No Mass, Tender Extremities: Pedal Edema Skin: warm, dry, intact Consult PN Assessment/Plan Procedures: Procedures BLOOD TYPING SEROLOGIC ABO (12/31/16) BLOOD TYPING SEROLOGIC RH(D) (12/31/16) CULTURE OTHR SPECIMN AEROBIC (12/02/16) RBC ANTIBODY SCREEN (12/31/16) ROUTINE VENIPUNCTURE (12/31/16) X-RAY EXAM L-2 SPINE 4/>VWS (12/02/16) Problem List Initiated/Reviewed/Updated: Yes My Orders last 24 hours: My Active Orders 01/17/17 13:03 Furosemide [Lasix] 40 mg IVPUSH NOW ONE 01/18/17 05:00 BASIC METABOLIC PANEL,BMP [CHEM] Timed 01/18/17 07:00 Furosemide [Lasix] 40 mg IVPUSH NOW ONE Plan: Assessment and plan - Intermittent somnolence and mild confusion - improved since yesterday with less sedation, likely secondary to combined effect of his usual home medications for management of schizophrenia in addition to his pain medication -Continue Abilify, Clozaril and divalproex -Decrease clonazepam to 1 mg 3 times a day -Scheduled Tylenol to reduce the amount of narcotics that he needs Volume overload - patient has significant lower extremity as well as scrotal edema and some crackles on his lung exam. He did receive a fair amount of volume with the resuscitation right after surgery during his hemorrhage. He has received IV Lasix over the past 2 days with improvement in peripheral edema and fairly good diuresis -IV furosemide now and again in a.m. -Reassess volume status tomorrow -BMP in a.m. Lumbar spinal stenosis status post ALIF - clinically doing well and pain control is adequate. -Postop cares per surgical team
[2017-01-17] MEDS ORDERED: Acetaminophen 500 MG Tab ONE (14:00)
[2017-01-17] MEDS ORDERED: Furosemide 40 MG Tab PO ONE (16:00)
--- NOTE | 2017-01-17 17:34 | PN ---
DATE OF SERVICE: 01/17/2017 SUBJECTIVE: Kashmir reports that his pain is controlled. His medications were adjusted yesterday by [facility] due to excessive sleepiness. Klonopin was decreased from 2 mg t.i.d. to 1 mg t.i.d., and he was more wakeful during the day. His pain has been controlled. Activity has been good. He has had extensive peripheral and scrotal edema. He will be evaluated by Dr. Krishna Montes today. Plans are to go to an adult foster home with home care, nursing services, and physical therapy. OBJECTIVE: GENERAL: Kashmir Sheridan is a 61-year-old male. He was easy to wake up this morning from a deep sleep. VITAL SIGNS: TPR is 97.7, 100, 16, and blood pressure 139/80. HEENT: Negative. NECK: Supple. HEART: Regular rate and rhythm. LUNGS: Clear. ABDOMEN: Soft, nontender. He remains to have the occlusive dressings on his stapled incision. MARIE drains have put out 150, 840, and 8 mL respectively of a light pink serosanguineous drainage. EXTREMITIES: Reveal marked peripheral edema. ASSESSMENT: 1. Interbody fusion of L5-S1 for L5-S1 spondylolisthesis and for foraminal stenosis, date of surgery 01/11/2017. 2. Exploration of left peritoneal area with evacuation of rectus and retroperitoneal hematoma and ligation of inferior epigastric artery, date of surgery 01/12/2017. PLAN: 1. Discharge to adult foster care in a.m. with home health care and physical therapy. 2. Discontinue Dilaudid. 3. Discontinue MARIE drain 1, 2, and 3. 4. Discontinue Aquacel dressing, may shower. 5. Good pulmonary toilet encouraged. 6. We will evaluate p.r.n. or in a.m. Promise Daly PA-C /[id number]
[2017-01-18] MEDS ORDERED: Furosemide 40 MG/4 ML VIAL IVPUSH ONE (07:00)
[2017-01-18] MEDS ORDERED: Furosemide 40 MG Tab PO ONE (07:00)
[2017-01-18] MEDS: Pantoprazole 40 MG Tab.CR PO SCH (07:09)
[2017-01-18] MEDS: CLOZARIL 100 MG PO SCH ×2 (08:02→11:42)
[2017-01-18] MEDS: ARIPiprazole 10 MG Tab PO SCH (08:34)
[2017-01-18] MEDS: Divalproex Sodium 250 MG Tab.ER PO SCH ×2 (08:35→13:14)
[2017-01-18] MEDS: Docusate Sodium 100 MG Cap PO SCH (08:35)
[2017-01-18] MEDS: Acetaminophen 500 MG Tab PO SCH ×2 (08:36→13:19)
[2017-01-18] MEDS: Oxybutynin 5 MG Tab PO SCH (08:36)
[2017-01-18] MEDS: Allopurinol 100 MG Tab PO SCH (08:38)
[2017-01-18] MEDS: ClonazePAM 1 MG Tab PO SCH ×2 (08:41→13:19)
[2017-01-18 09:48] VITALS: BP 130/87
--- NOTE | 2017-01-19 08:56 | PN ---
DATE OF SERVICE: 01/16/2017 SUBJECTIVE: The patient has been afebrile with stable vital signs. We held his evening Clozaril and Depakote, and with this he was much more awake today. It would appear that the Clozaril is making him overly sleepy to the point that he is not functional, we'll ask Dr. Greenwood to address that issue. Otherwise blood pressure relatively low and I think just discontinue the lisinopril at this point and the JPs are still putting out a fair bit and we'll leave those in place for today. If everything stays on track, he may be ready for discharge to [facility] tomorrow. Addi Mahan MD /[id number]
--- NOTE | 2017-01-19 12:47 | DISCH ---
FINAL DIAGNOSES: 1. Lumbar stenosis. 2. Lumbar spondylolisthesis. 3. Lumbar radiculopathy involving L5-S1. SECONDARY DIAGNOSES: 1. Postoperative bleeding from rectus muscle into the perirectal space and left retroperitoneum. 2. History of gastritis and duodenitis. 3. History of gastroesophageal reflux disease. 4. History schizophrenia. 5. History of obsessive-compulsive disorder. 6. History hypertriglyceridemia. 7. History of obesity. 8. History of coronary artery disease. 9. History of hypertension. PROCEDURES: 1. On 01/11/2017, anterior lumbar interbody fusion procedure done as co-surgery with Dr. Saw Mahan and Dr. Addi Mahan. 2. On 01/12/2017, exploration of left retroperitoneal area with:. a. Evacuation of retroperitoneal hematoma. b. Ligation of inferior epigastric artery. HOSPITAL COURSE: This is a 61-year-old male presenting with the above diagnoses and after evaluation deciding to go through with an anterior interbody fusion procedure. This was done on the date of admission. Postoperatively initially, he did well, but overnight he developed a low urine output and some mild degree of hypertension and tachycardia. He was noted to have significant drop in hemoglobin, and his CT scan showed what appeared to be rectus hematoma dissecting into the area of the retroperitoneum dissected out yesterday. The patient received three units of blood, and this area was re-explored and the hematoma evacuated. Bleeding appeared most likely to be coming from the left inferior epigastric artery and that was ligated. Postoperatively, the patient has done well considering the overall situation. He presently is eating well and moving his bowels and drains are to be removed. So, we transferred his care to the [facility] facility for followup. Medications are as per the transfer sheet. At this point, he has only had Tylenol for pain. Follow up will be with Dr. Addi Mahan and BRITTANY Rasmussen, in the next week and then Dr. Saw Mahan in a month postop.
== END 2017-01-18 14:15 | disposition other institution (70) | DRG 460 ==
LOC: JP.MS 01-11 05:17 → JP.SDS 01-11 05:17 → EDSTATUS 01-11 09:00 → JP.MS 01-11 11:35
PROVIDERS: ADMIT Surgery; ATTEND Orthopaedic Surgery
PROC: 0SB20ZZ Excision of Lumbar Vertebral Disc, Open Approach (ICD-10-PCS; principal; 2017-01-11)
PROC: 0SG30A0 Fusion of Lumbosacral Joint with Interbody Fusion Device, Anterior Approach, Anterior Column, Open Approach (ICD-10-PCS; principal; 2017-01-11)
PROC: 30233N1 Transfusion of Nonautologous Red Blood Cells into Peripheral Vein, Percutaneous Approach (ICD-10-PCS; 2017-01-12)
PROC: 0W3H0ZZ Control Bleeding in Retroperitoneum, Open Approach (ICD-10-PCS; 2017-01-12)
DX: M48.06 Spinal stenosis, lumbar region (principal); M96.840 Postprocedural hematoma of a musculoskeletal structure following a musculoskeletal system procedure; M43.16 Spondylolisthesis, lumbar region; M54.17 Radiculopathy, lumbosacral region; I10 Essential (primary) hypertension; F20.9 Schizophrenia, unspecified; F42.9 Obsessive-compulsive disorder, unspecified; F32.9 Major depressive disorder, single episode, unspecified; M10.9 Gout, unspecified; E66.9 Obesity, unspecified; Z68.39 Body mass index [BMI] 39.0-39.9, adult; F41.9 Anxiety disorder, unspecified; I25.10 Atherosclerotic heart disease of native coronary artery without angina pectoris; E78.5 Hyperlipidemia, unspecified; Z88.8 Allergy status to other drugs, medicaments and biological substances; Z79.82 Long term (current) use of aspirin; D64.9 Anemia, unspecified
CPT/HCPCS: 36415; 36430; 74176; 74176-26; 76001; 80048; 80053; 83735; 83880; 84100; 85025; 85027; 86850; 86900; 86901; 86920; 86922; 94640-76; 94762; 97110-GP; 97162-GP; 97165-GO; 97530-GP; A9270-GY; C1713; J0690; J1100; J1170; J1940; J2020; J2185; J2405; J2704; J3010; J3475; J7030; J7040; J7042; J7050; J7120; J7189; J7620; P9016